=== PATIENT | female | born 1955 | race Caucasian/White ===

== ENCOUNTER 2021-08-10 16:24 | Outpatient (CLI) | payer MEDICARE, OTHER | END 2021-08-10 16:25 | disposition home or self-care (01) | LOC: COV 16:24 | PROVIDERS: ATTEND Family Medicine | DX: U07.1 COVID-19 (principal) ==

== ENCOUNTER 2021-08-16 14:39 | Emergency (ER) | payer MEDICARE, OTHER ==
[2021-08-16 15:02] VITALS: BP 158/71
--- NOTE | 2021-08-16 15:22 | ED Physician Documentation ---
History of Present Illness - Stated complaint Stated Complaint: C+ - Chief complaint Chief Complaint: Resp - History obtained from History obtained from: Patient, Family - History of Present Illness Timing: How many days ago (10) Pain level max: 0 Pain level now: 0 - Additonal information Additional information: Patient is a 65-year-old female who states she has been sick with Covid for 10 to 11 days. Tested positive about a week ago. She states that she has been feeling tired and fatigued and still has a cough. She states she thought she would be better in 5 to 6 days. She did not receive her Covid vaccination. She is not having fevers. No difficulty breathing. Nothing makes it better or worse. She is concerned about potential bacterial pneumonia complicating the Covid. Review of Systems Ten Systems: 10 systems reviewed and negative Constitutional: denies: Fever, Chills Respiratory: reports: Cough (clear sputum) GI: denies: Abdominal Pain, Nausea, Vomiting, Diarrhea Skin: denies: Rash Musculoskeletal: denies: Neck pain, Back pain Neurologic: denies: Headache PD PAST MEDICAL HISTORY - Past Medical History Past Medical History: Yes Cardiovascular: High cholesterol Endocrine/Autoimmune: Type 2 diabetes - Present Medications Home Medications: Ambulatory Orders Medication Instructions Recorded Confirmed No Known Home Medications 08/16/21 08/16/21 - Allergies Allergies/Adverse Reactions: Allergies Allergy/AdvReac Type Severity Reaction Status Date / Time iodine topical AdvReac Unknown Uncoded 08/16/21 14:58 - Social History Smoking Status: Former smoker PD ED PE NORMAL - Vitals Vital signs reviewed: Yes - General General: Alert and oriented X 3, No acute distress, Well developed/nourished - HEENT HEENT: PERRL, Moist mucous membranes - Neck Neck: Supple, no meningeal sign - Cardiac Cardiac: RRR, Strong equal pulses - Respiratory Respiratory: No respiratory distress, Clear bilaterally - Abdomen Abdomen: Soft, Non tender, Non distended - Derm Derm: Warm and dry - Neuro Neuro: Alert and oriented X 3 - Psych Psych: Normal mood, Normal affect Results - Vitals Vitals: Vital Signs - 24 hr 08/16/21 14:59 Temperature 37.7 C Heart Rate 90 Respiratory 18 Rate Blood Pressure 158/71 H O2 Saturation 94 Oxygen O2 Source Room air - Rads (name of study) cxr Radiology: Final report received, EMP read contemporaneously, See rad report (1.Faint bilateral airspace opacities, concerning for an atypical infectious process. ) PD MEDICAL DECISION MAKING - ED course Complexity details: reviewed results, re-evaluated patient, considered differential, d/w patient ED course: 65-year-old female with Covid. No respiratory distress. No hypoxia. She is 10-11 days into her illness. We discussed risks and benefits of monoclonal antibody therapy and its emergency use authorization. Patient declines monoclonal antibody therapy at this time. She states she would like to go home and rest. She will return if she worsens. Patient counseled regarding signs and symptoms for which I believe and urgent re-evaluation would be necessary. Patient with good understanding of and agreement to plan and is comfortable going home at this time This document was made in part using voice recognition software. While efforts are made to proofread this document, sound alike and grammatical errors may occur. Departure - Departure Disposition: 01 Home, Self Care Clinical Impression: COVID-19 Condition: Good Instructions: COVID-19 [facility] Follow-Up: your,doctor as needed [Other] Comments: You do have covid and your xray is consistent with covid. there is no evidence of bacterial pneumonia on your xray. Return if you worsen. We did discuss monoclonal antibodies and you have declined these today. If any of your friends and/or family need to be tested, they can call the hospital at [phone] for an appointment to have their Covid test.
--- NOTE | 2021-08-16 15:29 | XRAY Report ---
PROCEDURE: Chest 1 View X-Ray INDICATIONS: Covid+ TECHNIQUE: One view of the chest was acquired. COMPARISON: None. FINDINGS: SUPPORT DEVICES: None. LUNG/PLEURA: Faint bilateral airspace opacities. No pleural effusion or pneumothorax. MEDIASTINUM: The cardiomediastinal silhouette is within normal limits. BONES/SOFT TISSUES: No acute abnormality. IMPRESSION: 1.Faint bilateral airspace opacities, concerning for an atypical infectious process. Reviewed by: Henry Mccullough MD on 08/16/2021 3:28 PM PDT Approved by: Henry Mccullough MD on 08/16/2021 3:28 PM PDT Station ID: [id number]
== END 2021-08-16 16:01 | disposition home or self-care (01) ==
LOC: ED 14:39
DX: U07.1 COVID-19 (principal); E11.9 Type 2 diabetes mellitus without complications
CPT/HCPCS: 99283; 99284

== ENCOUNTER 2025-09-17 04:46 | Inpatient (IN) ==
[2025-09-17 05:15] LABS: HCT - HEMATOCRIT 44.3 % (37.0-47.0); HGB - HEMOGLOBIN 14.1 g/dL (12.0-16.0); MEAN PLATELET VOLUME 12.7 fL (7.9-10.8); PLT - PLATELET COUNT 204 10^3/uL (130-450); RED CELL DISTRIBUTION WIDTH 14.1 % (12.0-15.0)
[2025-09-17 05:17] LABS: ABNORMAL LYMPHS % (MANUAL) 0 %; BASOPHILS # (MANUAL) 0.0 10^3/uL (0-0.1); EOSINOPHILS # (MANUAL) 0.0 10^3/uL (0-0.7)
[2025-09-17] MEDS: SODIUM CHLORIDE 0.9% 500 ML IV ONE (05:32)
[2025-09-17] MEDS: FAMOTIDINE 20 MG TABLET PO STA (05:32)
[2025-09-17] MEDS: ONDANSETRON 4 MG/2 ML VIAL IVP STA (05:32)
[2025-09-17 05:44] LABS: ALT ALANINE AMINOTRANSFERASE 11 IU/L (10-60); AST ASPARTATE AMINOTRANSFERASE 11 IU/L (10-42); BUN - BLOOD UREA NITROGEN 39 mg/dL (6-20); CARBON DIOXIDE - CO2 23 mmol/L (21-32); CREATININE 2.1 mg/dL (0.6-1.3); GFR - MDRD 23 (>89)
[2025-09-17 05:46] LABS: BAND NEUTROPHILS % (MANUAL) 9 %; LYMPHOCYTES # (MANUAL) 1.8 10^3/uL (1.5-3.5); LYMPHOCYTES % (MANUAL) 8 %; MONOCYTES # (MANUAL) 0.2 10^3/uL (0.0-1.0); NEUTROPHILS # (MANUAL) 20.1 10^3/uL (1.5-6.6)
[2025-09-17 05:51] LABS: PLATELET ESTIMATE, MANUAL NORMAL (130-450,000) (NORMAL); PLATELET MORPHOLOGY 1+ LARGE PLATELETS (NORMAL); RBC MORPHOLOGY (MULTIPLE) NORMAL APPEARANCE (NORMAL)
--- NOTE | 2025-09-17 06:01 | ED Physician Documentation ---
History of Present Illness Stated complaint Stated Complaint: ABD PX Chief complaint Chief Complaint: Abd Pain History obtained from History obtained from: Patient Additonal information Additional information: 69yF with pmh dm p/w nbnb n/v X 2 days with malaise and generalized discomfort. denies abdominal pain, diarrhea, back pain or urinary sx. Meds/Allgy Home Medications Ambulatory Orders Medication Instructions Recorded Confirmed No Known Home Medications 08/16/21 100 05/01 Allergies Allergies Allergy/AdvReac Type Severity Reaction Status Date / Time Penicillins Allergy Mild Rash Verified 09/17/25 04:59 iodine topical AdvReac Unknown Uncoded 08/16/21 14:58 PFS Medical History Medical History (Updated 09/17/25 @ 05:58 by Bell Drake RN) Diabetes Surgical History Surgical History (Updated 09/17/25 @ 05:58 by Bell Drake RN) No pertinent past surgical history Social History Social History Do you feel safe in your home environment?: Yes History of physical, verbal, emotional, or financial abuse?: No POLST Patient has POLST: No Exam Exam Vital Signs: Vital Signs x48h Temp Pulse Resp BP Pulse Ox 09/17/25 04:55 35.9 C L 111 H 14 167/63 H 94 Constitutional deconditioned appearing HENMT normocephalic, head/scalp atraumatic and oropharynx normal Eyes PERRL and EOMs intact bilaterally Neck/C-Spine visual inspection normal Chest inspection of chest normal Respiratory breath sounds equal bilaterally, normal respiratory effort and clear to auscultation bilaterally Cardiovascular normal heart rate noted and regular rhythm noted Gastrointestinal abdomen normal to inspection, abdomen soft to palpation and nontender to palpation Genitourinary no CVA tenderness Back/Pelvis spine normal to inspection Extremities normal to inspection Results Vitals Vitals: Vital Signs - 24 hr 09/17/25 04:55 Temperature 35.9 C L Temperature Source Temporal Artery Scan Pulse Rate 111 H Respiratory Rate 14 Blood Pressure 167/63 H O2 Saturation 94 O2 Source Room air Pain Intensity 0 Oxygen O2 Source Room air Labs Labs: Laboratory Tests 09/17/25 09/17/25 05:10 05:10 WBC 22.1 H RBC 4.98 Hgb 14.1 Hct 44.3 MCV 89.0 MCH 28.3 MCHC 31.8 L RDW 14.1 Plt Count 204 MPV 12.7 H Neut # (Auto) Not Reportable Lymph # (Auto) Not Reportable [place] # (Auto) Not Reportable Eos # (Auto) Not Reportable Baso # (Auto) Not Reportable Absolute Nucleated RBC Not Reportable Total Counted 100 Band Neuts % (Manual) 9 Abnorm Lymph % (Manual) 0 Nucleated RBC % Not Reportable Neutrophils # (Manual) 20.1 H Lymphocytes # (Manual) 1.8 Monocytes # (Manual) 0.2 Eosinophils # (Manual) 0.0 Basophils # (Manual) 0.0 Differential Comment MANUAL DIFFERENTIAL WBC Morphology 1+ DOHLE BODIES 1+ VACUOLATION Platelet Estimate NORMAL (130-450,000) Platelet Morphology 1+ LARGE PLATELETS RBC Morph Micro Appear NORMAL APPEARANCE Sodium 128 L Potassium 4.3 Chloride 88 L Carbon Dioxide 23 Anion Gap 17.0 H BUN 39 H Creatinine 2.1 H Estimated GFR (MDRD) 23 L Glucose 567 H* Calcium 9.4 Total Bilirubin 0.5 AST 11 ALT 11 Alkaline Phosphatase 131 H Total Protein 7.1 Albumin 3.5 Globulin 3.6 Albumin/Globulin Ratio 1.0 Lipase < 10 L PD Medical Decision Making ED course ED course: 69yF p/w n/v, leukocytosis with wbc 22, hyperglycemia to 567. insulin, potassium ordered as well as ivf. plan to admit. CT a/p ordered. it is too late for telehealth to admit the patient therefore plan to endorse to incoming daytime ed md at 7am shift change to admit to daytime hospitalist. Discharge Plan Discharge Prescriptions: No Action No Known Home Medications Print Language: Indonesian Stand Alone Forms: PCP List
[2025-09-17] MEDS: INSULIN REGULAR, HUMAN 300 UNIT/3 ML PEN IVP STA (06:14)
[2025-09-17] MEDS: POTASSIUM CHLOR 10 MEQ/100 ML 10 MEQ/100 ML BAG IV STA (06:14)
[2025-09-17] MEDS: SODIUM CHLORIDE 0.9% 1,500 ML IV ONE (06:15)
[2025-09-17 06:27] LABS: VBG BASE EXCESS -4.5 mmol/L (-2 - +2); VBG PCO2 42.9 mmHg (41-51); VBG PH 7.313 (7.31-7.41); VBG PO2 36.8 mmHg (25-47); VBG TOTAL CO2 23.3 mmol/L (24-29)
--- NOTE | 2025-09-17 09:10 | CT Report ---
PROCEDURE: CT Abdomen/Pelvis WO INDICATIONS: n/v/malaise leukocytosis X 2 days; kidney stones TECHNIQUE: A CT scan of the abdomen and pelvis was performed without the use of intravenous contrast. Images were recorded and evaluated at appropriate window settings. Reformats: coronal and sagittal. For radiation dose reduction, the following was used: automated exposure control, adjustment of mA and/or kV according to patient size. COMPARISON: None. FINDINGS: Image quality: Diagnostic. Lower chest: Ill-defined nodular density, right middle lobe measuring approximately 0.9 x 1.7 cm. Reference axial image 11 of series 2. Heart size is within normal limits. Liver: No contour-deforming mass. Gallbladder: Layering gallstones or gravel. No wall thickening. Biliary tree: No intrahepatic or extrahepatic dilation, accounting for age. Spleen: No splenomegaly. Pancreas: No pancreatic ductal dilation. Adrenals: There is a 5 cm lesion of the left adrenal which is almost completely fat, consistent with incidental myelolipoma. Reference axial image 48 of series 2. Kidneys and ureters: No hydronephrosis. No contour-deforming mass. Stomach, bowel and peritoneum: No gastric or small bowel dilation. No abnormal wall thickening. There is inflammatory change in the right abdomen mesentery etiology is uncertain. Suspect mild segmental colitis involving the cecum and proximal ascending colon. Normal appendix. Lymph nodes: No central or retroperitoneal adenopathy. Shotty retroperitoneal adenopathy is likely reactive.. Vessels: No infrarenal aortic aneurysm. Reproductive organs: Unremarkable. Bladder: No abnormal bladder wall thickening. No calcified bladder stones. Pelvic lymph nodes: No adenopathy by size criteria. Bones: No aggressive osseous abnormality. Other: No significant ventral or inguinal hernia. IMPRESSION: 1. No renal stone, ureteral stone, or hydronephrosis. 2. Inflammatory change most noted in the right abdomen. Suspect segmental proximal colitis. A normal appendix is identified. 3. Layering gallstones versus gravel. 4. Ill-defined 0.9 x 1.7 cm nodular density in the right middle lobe, potentially partially related to atelectasis. Consider follow-up CT chest in 1-2 months. Findings are concordant with preliminary interpretation provided by [facility]. Reviewed by: Lamont De Jesus MD on 09/17/2025 9:07 AM [facility] Approved by: Lamont De Jesus MD on 09/17/2025 9:07 AM PST Station ID: [id number]
--- NOTE | 2025-09-17 09:56 | ED Physician Documentation ---
ED Addendum Addendum Addendum: 69-year-old Anne Lainez is left in my care at shift change pending admission to the hospital for diabetic ketoacidosis. She has type 2 diabetes and has been noncompliant with her medications. She is severely volume depleted, she has been given 2 L of fluid she has been given 10 units of iinsulin IV. She has ketones and a pH of 7.3. The hospitalist is contacted and the patient is placed onto an insulin drip and transferred to the intensive care unit. Admission to the hospital is sought for improvement in compliance, diabetic education and resolution of ketoacidosis. Discharge Plan Discharge Patient Disposition: 64 [facility] DC/Xfer Condition: Stable Clinical Impression: DKA (diabetic ketoacidosis) Qualifiers: Diabetes mellitus type: type 2 Diabetes mellitus complication detail: without coma Qualified Code(s): E11.10 - Type 2 diabetes mellitus with ketoacidosis without coma Interventions: ED Admission Assessment Last Done: 09/17/25 10:44 Vitals documented within 30 minutes of discharge?: Yes
[2025-09-17 10:33] LABS: GLUCOSE, URINE (UA) >=1000 mg/dL (NEGATIVE); KETONES,URINE (UA) 15 mg/dL (NEGATIVE); OCCULT BLOOD,URINE MODERATE (NEGATIVE)
[2025-09-17] MEDS: INSULIN REGULAR IN 0.9 % NS 100 UNIT/100 ML BAG IV STA (10:41)
[2025-09-17] MEDS: LACTATED RINGERS 1,000 ML IV ONE (10:41)
[2025-09-17 10:42] LABS: CARBON DIOXIDE - CO2 20.0 mmol/L (21-32)
[2025-09-17] MEDS: POTASSIUM CHLORIDE INJ 20 MEQ in LACTATED RINGERS 1,000 ML IV SCH (10:42)
[2025-09-17 10:47] LABS: BUN - BLOOD UREA NITROGEN 39.0 mg/dL (6-20); CREATININE 1.9 mg/dL (0.6-1.3); GFR - MDRD 26.0 (>89)
[2025-09-17 10:49] LABS: SQUAMOUS EPITHELIAL CELL,UR MOD Squamous (<= Few); WBC CLUMPS,URINE PRESENT
[2025-09-17] MEDS ORDERED: ONDANSETRON ODT 4 MG TABLET TL PRN (10:52)
--- NOTE | 2025-09-17 10:58 | HISTORY & PHYSICAL EXAMINATION ---
Chief Complaint Chief Complaint Chief Complaint: Nausea and vomiting History of Present Illness Admitted From Admitted From:: Home History Obtained From Records Reviewed: EMR History obtained from: Patient and Patient's son Exam Limitations: None History of Present Illness HPI Comment/Other: Anne Lainez is a 69 year old female with a history of type 2 diabetes mellitis who presented to the ER early 09/17 with nausea/vomiting for two days and malaise and generalized discomfort. She is being admitted for DKA. Patient's son, Mj, at bedside. Ms. Lainez started experiencing nausea and vomiting two days ago. She had not been eating much before then. She lives with her son and [id number]. Her son showed us a picture of her vomit from a day ago which appeared like yellowish bile and coffee ground. Her son tried to get her to eat something, but she just continued to vomit it back up. She has been diagnosed with type 2 diabetes. Her son says that she previously controlled it with activity and diet, but that it has been more and more difficult to manage. A number of stressful events have occurred recently including the deaths of close family members, which has made her less motivated. She does not take any medicines and has not seen a doctor in 12 years. ROS: Denies fevers, chills Denies SOB, CP and chest tightness Reports fatigue and weakness Reports decrease in appetite d/t nausea Reports history of cataracts and floaters bilaterally. Meds/Allgy Home Medications Ambulatory Orders Medication Instructions Recorded Confirmed No Known Home Medications 08/16/2106/04 Allergies Allergies Allergy/AdvReac Type Severity Reaction Status Date / Time Penicillins Allergy Mild Rash Verified 09/17/25 07:25 iodine topical AdvReac Unknown Uncoded 09/17/25 07:25 [facility] Active Problems All Active Problems (Updated 09/17/25 @ 16:37 by Naveed Christian MD) Acute kidney failure (Acute) High anion gap metabolic acidosis (Acute) Gram-negative bacteremia (Acute) Gram negative sepsis (Acute) Atrial fibrillation with RVR (Chronic) DKA (diabetic ketoacidosis) (Chronic) Medical History Medical History (Updated 09/17/25 @ 16:37 by Naveed Christian MD) Diabetes Surgical History Surgical History (Updated 09/17/25 @ 05:58 by Bell Darke RN) No pertinent past surgical history Social History Social History (Updated 09/17/25 @ 15:05 by Ronnie Evans) Smoking Status: Former smoker Second hand tobacco smoke exposure: No Do you dip or chew tobacco?: No Do you vape?: No Do you feel safe in your home environment?: Yes History of physical, verbal, emotional, or financial abuse?: No POLST Patient has POLST: No Review of Systems Status of ROS: 10 or more systems reviewed and unremarkable except as noted in history and below Constitutional Reports: Fatigue, Malaise, Weakness, Changes in appetite or eating habits and Poor appetite; Denies: Fever or Chills Eyes Reports: Floaters, Vision loss (gradual decrease in vision d/t cataracts) and Decreased night vision Cardiovascular Reports: Irregular heart rate and palpitations; Denies: chest pain, edema or shortness of breath with exertion Respiratory Denies: Shortness of breath, Cough or Sputum production Gastrointestinal Reports: Abdominal pain (resolved), Nausea, Vomiting, Poor appetite and Bile emesis Genitourinary Denies: Painful urination, Urinary frequency, Urinary urgency, Nocturia, Urinary incontinence or Blood in urine Musculoskeletal Denies: Back pain or Extremity pain Integumentary/Breast Denies: Rash, Itching, Dryness or Redness Neurological Denies: Headache, General weakness or Focal weakness Psychiatric Denies: Depression, Anxiety, Mood swings or Panic attacks Endocrine Reports: Excessive urination and Fatigue Prior Level of Functionality: Independent of ADLs, but lives with son. States that she should be maybe using a walker or cane. Exam Exam Vital Signs: Vital Signs x48h Temp Pulse Pulse Resp BP BP Pulse Ox 09/17/25 16:00 37.4 C 133 H 20 117/90 92 09/17/25 15:00 122 H 25 H 110/51 L 95 09/17/25 14:17 132 H 21 98/55 L 93 09/17/25 14:07 133 H 21 103/65 95 09/17/25 14:00 126 H 23 103/65 95 09/17/25 13:00 115 H 21 100/64 93 09/17/25 12:00 115 H 22 115/54 L 92 09/17/25 11:37 135 H 149/104 H 09/17/25 11:30 107 H 24 92 09/17/25 11:00 133 H 26 H 149/104 H 90 L 09/17/25 10:47 37.3 C 106 H 13 114/67 94 Constitutional abnormal general appearance other (sleepy), no apparent distress and alert HENMT normocephalic and head/scalp atraumatic Eyes PERRL, EOMs intact bilaterally and conjunctivae normal Respiratory breath sounds equal bilaterally and normal respiratory effort Cardiovascular heart rate abnormal (tachycardic), rhythm abnormal (irregular), no gallop, no rub, no murmur, no JVD and peripheral pulses 2+ throughout Gastrointestinal abdomen normal to inspection, abdomen soft to palpation, nontender to palpation and nondistended Genitourinary no CVA tenderness and bladder normal to palpation Back/Pelvis spine normal to inspection and no thoracic spine tenderness Extremities normal to inspection and no tenderness Neurology no movement abnormality noted and no focal motor deficit noted Psychiatry mental status grossly normal, oriented x3, thought process normal and cooperative Skin skin color normal Conclusion/Plan Problem List (1) DKA (diabetic ketoacidosis): Qualifiers: Diabetes mellitus complication detail: without coma Diabetes mellitus type: type 2 Qualified Code(s): E11.10 - Type 2 diabetes mellitus with ketoacidosis without coma (2) High anion gap metabolic acidosis: Plan: Anne Lainez is a 69 year old female with a history of type 2 diabetes mellitis who presented to the ER early 09/17 with nausea/vomiting for two days and malaise and generalized discomfort. She does not take any medications for DM2. Her son states it was previously controlled with exercise and diet, but is now poorly controlled. Labs at admit: Serum glucose 567(H). Elevated urine glucose. Serum pH 7.31. Anion gap 17.0(H). Elevated serum and urine ketones. She is being admitted for DKA. She has been started on a continuous insulin drip with IV fluids supplemental potassium. Her POC glucose is being checked hourly. Her BMP are being checked every two hours. The following plan is for the above diagnoses. - Continue checking POC glucose hourly - Continue checking BMP every 2 hours for bicarb and anion gap - Continue continuous insulin IV drip until bicarb >18 and anion gap is closed on two subsequent BMPs. Then will change to Lantus, sliding scale, diabetic diet. - Continue fluid resuscitation - Continue potassium supplemental PRN to prevent hypokalemia - Continue NPO diet - Clinical Pharmacy Manager consult - Insulin teaching when receiving insulin (3) Gram negative sepsis: Plan: Blood cultures drawn at admit resulted with gram-negative bacilli. - Source is likely urine. UA is contaminated. Patient does not endorse many urinary symptoms except for polyuria and polydipsia. - SIRS criteria positive for tachypnea, leukocytosis, and tachycardia. - Start daily ceftriaxone 2 gm IV daily (4) Atrial fibrillation with RVR: Plan: No known previous history of Afib. Pt developed Afib with RVR at admission. - Started metoprolol tartrate 25 mg PO BID for rate control - Started on apixaban 5 mg for clot prevention - Continue monitoring on tele - ECHO ordered (5) Acute kidney failure: Plan: Likely multifactorial due to pre-renal causes and intrisinc injury with hemodynamic ATN due to sepsis - Continue IVF Lab Results Lab results reviewed: Yes 09/17/25 05:10 09/17/25 15:52
[2025-09-17 11:10] LABS: ESTIMATED AVERAGE GLUCOSE 367 mg/dL (70-100); HEMOGLOBIN A1c% 14.4 % (4.27-6.07)
--- NOTE | 2025-09-17 11:20 | PHARMACY PROGRESS NOTE ---
Best Possible Medication History Admit Date and Time: 09/17/25 235219 Home Medications Medication Instructions Recorded Confirmed Type No Known Home Medications 08/16/2106/04 History Processed by: Pharmacy Medications reviewed in ED?: No Medication History completed: Yes Patient Interview: Completed Secondary Source(s): Other family member [facility] Statement: As the person ultimately responsible for medication therapy, providers are able to order a medication from an existing home medication list in [facility] via the "Reconcile Routine" prior to Confirmation of that medication by support services tech. Such practice is discouraged except when the physician, in their clinical judgment, deems that a medical need exists for a medication without regard to previous use.
[2025-09-17] MEDS ORDERED: METOPROLOL 5 MG/5 ML VIAL IVP ONE (11:29)
[2025-09-17] MEDS: METOPROLOL 5 MG/5 ML VIAL IVP ONE ×2 (11:37→18:38)
[2025-09-17] MEDS: POTASSIUM CHLOR 10 MEQ/100 ML 10 MEQ/100 ML BAG IV SCH ×2 (12:06→14:40)
[2025-09-17 13:35] LABS: PHOSPHORUS 1.9 mg/dL (2.5-5.0)
[2025-09-17 13:36] LABS: BUN - BLOOD UREA NITROGEN 41.0 mg/dL (6-20); CARBON DIOXIDE - CO2 22.0 mmol/L (21-32); CREATININE 1.8 mg/dL (0.6-1.3); GFR - MDRD 28.0 (>89)
[2025-09-17] MEDS: MAGNESIUM SULFATE 2 GRAM 2 GM/50 ML BAG IV ONE (13:59)
[2025-09-17] MEDS ORDERED: POTASSIUM CHLOR 10 MEQ/100 ML 10 MEQ/100 ML BAG IV SCH ×2 (14:00)
[2025-09-17] MEDS: POTASSIUM CHLORIDE INJ 20 MEQ in DEXTROSE 5%-LACTATED RINGERS 1,000 ML IV SCH (14:41)
[2025-09-17] MEDS ORDERED: POTASSIUM PHOSPHATE 15 MMOL in SODIUM CHLORIDE 0.9% 250 ML IV ONE (14:50)
[2025-09-17] MEDS ORDERED: INSULIN REGULAR IN 0.9 % NS 100 UNIT/100 ML BAG IV ONE (14:52)
[2025-09-17 16:12] LABS: BUN - BLOOD UREA NITROGEN 40.0 mg/dL (6-20); CARBON DIOXIDE - CO2 25.0 mmol/L (21-32); CREATININE 1.9 mg/dL (0.6-1.3); GFR - MDRD 26.0 (>89)
[2025-09-17] MEDS: INSULIN GLARGINE-YFGN 300 UNIT/3 ML PEN SUBQ ONE (16:48)
[2025-09-17] MEDS: SODIUM CHLORIDE FLUSH 0.9% 10 ML SYRINGE IVP SCH (16:54)
[2025-09-17 17:48] LABS: BUN - BLOOD UREA NITROGEN 42.0 mg/dL (6-20); CARBON DIOXIDE - CO2 25.0 mmol/L (21-32); CREATININE 1.8 mg/dL (0.6-1.3); GFR - MDRD 28.0 (>89)
[2025-09-17] MEDS: ONDANSETRON 4 MG/2 ML VIAL IVP PRN (17:49)
[2025-09-17] MEDS: LACTATED RINGERS 1,000 ML IV SCH (17:50)
[2025-09-17] MEDS: APIXABAN 5 MG TABLET PO SCH (21:15)
[2025-09-17] MEDS: METOPROLOL TARTRATE 25 MG TABLET PO SCH (21:15)
[2025-09-17] MEDS: ACETAMINOPHEN 325 MG TABLET PO PRN (21:23)
[2025-09-17] MEDS: INSULIN LISPRO 300 UNIT/3 ML PEN SUBQ SCH (21:36)
[2025-09-18 05:00] LABS: HCT - HEMATOCRIT 37.8 % (37.0-47.0); HGB - HEMOGLOBIN 12.3 g/dL (12.0-16.0); MEAN PLATELET VOLUME 12.5 fL (7.9-10.8); PLT - PLATELET COUNT 168.0 10^3/uL (130-450); RED CELL DISTRIBUTION WIDTH 14.2 % (12.0-15.0)
[2025-09-18 05:17] LABS: BUN - BLOOD UREA NITROGEN 48.0 mg/dL (6-20); CARBON DIOXIDE - CO2 21.0 mmol/L (21-32); CREATININE 2.3 mg/dL (0.6-1.3); GFR - MDRD 21.0 (>89)
[2025-09-18] MEDS: PANTOPRAZOLE 40 MG VIAL IVP SCH (06:28)
[2025-09-18] MEDS: INSULIN GLARGINE-YFGN 300 UNIT/3 ML PEN SUBQ ONE (07:56)
[2025-09-18] MEDS: INSULIN LISPRO 300 UNIT/3 ML PEN SUBQ SCH ×2 (07:57→17:54)
[2025-09-18] MEDS: APIXABAN 2.5 MG TABLET PO SCH (08:05)
[2025-09-18] MEDS: SODIUM CHLORIDE 0.9% 1,000 ML IV SCH (09:26)
--- NOTE | 2025-09-18 11:38 | PROVIDER PROGRESS NOTE ---
Subjective Prog Note Date Prog Note Date: 09/18/25 Prog Note Time: 09:15 Subjective Pt reports feeling: Improved Subjective: Anne Lainez is a 69 year old female with a history of type 2 diabetes mellitus who presented to the ER early 09/17 with nausea/vomiting for two days and malaise and generalized discomfort. She is feeling much better today. She doesn't remember any of the events of yesterday, but feels much more alert today. She felt a bit nauseous earlier today before eating, but felt much better after some food and meds. She ate about half of her breakfast. She had a bit of a sinus headache overnight, but says that it has resolved. She says that her decreased vision is at baseline. 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 Floaters in her left eye. And cataracts in both eyes. She says that she has decreased sensation on her feet and has a history of toe fungus on her left foot. Her son typically helps her cut her toenails. ROS: Denies fever, nausea, vomiting Reports some shivers overnight, but denies feeling of chills Denies WEIR Denies SOB, CP, chest tightness Reports minor epigastric pain that resolved with eating Current Medications Current Medications Current Medications: Current Medications Generic Name Dose Route Start Last Admin Trade Name Freq PRN Reason Stop Dose Admin Acetaminophen 650 mg 09/17/25 10:52 09/17/25 21:23 Acetaminophen 325 Mg Tablet PO 650 mg Q4HR PRN Administration Pain 1 to 4, or Fever Apixaban 2.5 mg 09/18/25 09:00 09/18/25 08:05 Apixaban 2.5 Mg Tablet PO 2.5 mg BID FABIO Administration Ceftriaxone Sodium 2 gm 09/17/25 17:00 09/18/25 08:04 Ceftriaxone 2 Gm Vial IVP 2 gm DAILY FABIO Administration Sodium Chloride 1,000 mls @ 75 mls/hr 09/18/25 10:00 09/18/25 09:26 Normal Saline 0.9% IV 75 mls/hr .[id number] FABIO Administration Insulin Human Lispro 1 - 9 unit 09/18/25 08:00 09/18/25 07:57 Insulin Lispro 300 Unit/3 Ml Pen SUBQ 7 unit 0800,1200,1700,2100 FABIO Administration Protocol Metoprolol Tartrate 25 mg 09/17/25 21:00 09/18/25 07:59 Metoprolol Tartrate 25 Mg Tablet PO 25 mg BID FABIO Administration Ondansetron HCl 4 mg 09/17/25 10:52 Ondansetron Odt 4 Mg Tablet TL Q6HR PRN Nausea / Vomiting Ondansetron HCl 4 mg 09/17/25 10:52 09/18/25 06:35 Ondansetron 4 Mg/2 Ml Vial IVP 4 mg Q6HR PRN Administration Nausea / Vomiting Pantoprazole Sodium 40 mg 09/19/25 07:00 Pantoprazole 40 Mg Tablet PO QDAC FABIO Sodium Chloride 10 ml 09/17/25 17:00 09/18/25 08:04 Sodium Chloride Flush 0.9% 10 Ml Syringe IVP 10 ml 0100,0900,1700 FABIO Administration Sodium Chloride 10 ml 09/17/25 10:52 Sodium Chloride Flush 0.9% 10 Ml Syringe IVP PRN PRN NEEDED PER PROVIDER ORDERS Objective Vital Signs/Intake & Output Reviewed Vital Signs: Yes Vital Signs: Vital Signs x48h Temp Pulse Pulse Resp BP BP Pulse Ox 09/18/25 11:00 71 21 137/72 H 96 09/18/25 10:00 70 20 125/84 94 09/18/25 09:00 73 25 H 130/81 94 09/18/25 08:00 09/18/25 08:00 36.8 C 82 22 166/87 H 95 09/18/25 07:59 82 166/87 H 09/18/25 07:00 77 22 148/81 H 96 09/18/25 06:00 78 29 H 144/83 H 96 09/18/25 05:00 78 19 151/69 H 98 09/18/25 04:00 75 22 112/69 96 O2 Flow Rate 09/18/25 11:00 2 09/18/25 10:00 2 09/18/25 09:00 2 09/18/25 08:00 2 09/18/25 08:00 2 09/18/25 07:59 09/18/25 07:00 09/18/25 06:00 2 09/18/25 05:00 2 09/18/25 04:00 2 Intake & Output: Intake & Output 09/15/25 09/16/25 09/17/25 09/18/25 23:59 23:59 23:59 23:59 Intake Total 4961 / 4961 2501 / 2501 Output Total 50 / 50 50 / 50 Balance 4911 / 4911 2451 / 2451 Weight (kg) 86 kg 90.5 kg Objective General Appearance: positive No acute distress and Alert Eyes Bilateral: positive Normal inspection, PERRL and EOMI Neck: positive Nml inspection Respiratory: positive Chest non-tender, No respiratory distress, Breath sounds nml and Other (Mild bibasilar crackles); negative Wheezes, Rales or Rhonchi Cardiovascular: positive Regular rate & rhythm (Rate currently controlled), No murmur and No gallop; negative Friction rub Peripheral Pulses: 2+: Radial (R), 2+: Radial (L), 2+: Dorsalis pedis (R), 2+: Dorsalis pedis (L), 2+: Posterior tibialis (R) and 2+: Posterior tibialis (L) Abdomen: positive Non-tender and No distention; negative Guarding, Rebound, Hepatomegaly or Mass Skin: positive Color nml, No rash and Warm Extremities: positive Non-tender, No pedal edema and Other (Yellowish toenails on left foot. Decreased sensation bilaterally in LE, worse on left foot. No apparent cellulitis, wounds, or infections.) Neurologic/Psychiatric: positive Oriented x3, Sensation nml (Diminished LE sensation bilaterally) and Mood/affect nml Lab Results 09/18/25 04:15 09/18/25 04:15 Other Labs: Lab Results x24hrs 09/18/25 09/18/25 09/17/25 Range/Units 07:38 04:15 20:28 WBC 15.8 H (4.8-10.8) x10^3/uL RBC 4.20 (4.20-5.40) 10^6/uL Hgb 12.3 (12.0-16.0) g/dL Hct 37.8 (37.0-47.0) % MCV 90.0 (81.0-99.0) fL MCH 29.3 (27.0-31.0) pg MCHC 32.5 (32.0-36.0) g/dL RDW 14.2 (12.0-15.0) % Plt Count 168 (130-450) 10^3/uL MPV 12.5 H (7.9-10.8) fL Sodium 127 L (135-145) mmol/L Potassium 4.7 H (3.5-4.5) mmol/L Chloride 97 L (101-111) mmol/L Carbon Dioxide 21 (21-32) mmol/L Anion Gap 9.0 (6-13) BUN 48 H (6-20) mg/dL Creatinine 2.3 H (0.6-1.3) mg/dL Estimated GFR (MDRD) 21 L (>89) Glucose 288 H (74-104) mg/dL POC Whole Bld Glucose 276 216 (70-100) mg/dL Calcium 8.4 L (8.5-10.3) mg/dL Phosphorus (2.5-5.0) mg/dL Magnesium 2.1 (1.7-2.3) mg/dL Nasal Screen MRSA (PCR) (NEGATIVE) 09/17/25 09/17/25 09/17/25 Range/Units 17:56 17:14 16:51 WBC (4.8-10.8) x10^3/uL RBC (4.20-5.40) 10^6/uL Hgb (12.0-16.0) g/dL Hct (37.0-47.0) % MCV (81.0-99.0) fL MCH (27.0-31.0) pg MCHC (32.0-36.0) g/dL RDW (12.0-15.0) % Plt Count (130-450) 10^3/uL MPV (7.9-10.8) fL Sodium 133 L (135-145) mmol/L Potassium 3.9 (3.5-4.5) mmol/L Chloride 99 L (101-111) mmol/L Carbon Dioxide 25 (21-32) mmol/L Anion Gap 9.0 (6-13) BUN 42 H (6-20) mg/dL Creatinine 1.8 H (0.6-1.3) mg/dL Estimated GFR (MDRD) 28 L (>89) Glucose 86 (74-104) mg/dL POC Whole Bld Glucose 124 103 (70-100) mg/dL Calcium 8.5 (8.5-10.3) mg/dL Phosphorus (2.5-5.0) mg/dL Magnesium (1.7-2.3) mg/dL Nasal Screen MRSA (PCR) (NEGATIVE) 09/17/25 09/17/25 09/17/25 Range/Units 15:52 15:03 13:55 WBC (4.8-10.8) x10^3/uL RBC (4.20-5.40) 10^6/uL Hgb (12.0-16.0) g/dL Hct (37.0-47.0) % MCV (81.0-99.0) fL MCH (27.0-31.0) pg MCHC (32.0-36.0) g/dL RDW (12.0-15.0) % Plt Count (130-450) 10^3/uL MPV (7.9-10.8) fL Sodium 132 L (135-145) mmol/L Potassium 3.9 (3.5-4.5) mmol/L Chloride 99 L (101-111) mmol/L Carbon Dioxide 25 (21-32) mmol/L Anion Gap 8.0 (6-13) BUN 40 H (6-20) mg/dL Creatinine 1.9 H (0.6-1.3) mg/dL Estimated GFR (MDRD) 26 L (>89) Glucose 125 H (74-104) mg/dL POC Whole Bld Glucose 121 175 240 (70-100) mg/dL Calcium 8.7 (8.5-10.3) mg/dL Phosphorus (2.5-5.0) mg/dL Magnesium (1.7-2.3) mg/dL Nasal Screen MRSA (PCR) (NEGATIVE) 09/17/25 09/17/25 09/17/25 Range/Units 13:13 11:58 11:00 WBC (4.8-10.8) x10^3/uL RBC (4.20-5.40) 10^6/uL Hgb (12.0-16.0) g/dL Hct (37.0-47.0) % MCV (81.0-99.0) fL MCH (27.0-31.0) pg MCHC (32.0-36.0) g/dL RDW (12.0-15.0) % Plt Count (130-450) 10^3/uL MPV (7.9-10.8) fL Sodium 131 L (135-145) mmol/L Potassium 3.6 (3.5-4.5) mmol/L Chloride 97 L (101-111) mmol/L Carbon Dioxide 22 (21-32) mmol/L Anion Gap 12.0 (6-13) BUN 41 H (6-20) mg/dL Creatinine 1.8 H (0.6-1.3) mg/dL Estimated GFR (MDRD) 28 L (>89) Glucose 304 H (74-104) mg/dL POC Whole Bld Glucose 291 351 (70-100) mg/dL Calcium 8.2 L (8.5-10.3) mg/dL Phosphorus 1.9 L (2.5-5.0) mg/dL Magnesium 1.6 L (1.7-2.3) mg/dL Nasal Screen MRSA (PCR) NEGATIVE (NEGATIVE) Assessment/Plan Problem List (1) E coli bacteremia: Impression: Blood cultures drawn 09/17 resulted with E coli. Source is likely urine. UA is contaminated. Patient does not endorse many urinary symptoms except for polyuria and polydipsia. SIRS criteria positive for tachypnea, leukocytosis, and tachycardia. Leukocytosis is improved today. Afebrile for over 24 hours. Now in normal sinus rhythm. - Continue daily ceftriaxone 2 gm IV daily for a total of 4 days with transition to oral antibiotics pending clinical improvement to complete a 7-14 day course. (2) DKA (diabetic ketoacidosis): Qualifiers: Diabetes mellitus complication detail: without coma Diabetes mellitus type: type 2 Qualified Code(s): E11.10 - Type 2 diabetes mellitus with ketoacidosis without coma (3) High anion gap metabolic acidosis: Impression: Anne Lainez is a 69 year old female with a history of type 2 diabetes mellitus who presented to the ER early 09/17 with nausea/vomiting for two days and malaise and generalized discomfort. She does not take any medications for DM2. Her son states it was previously controlled with exercise and diet, but is now poorly controlled. Labs at admit: Serum glucose 567(H). Elevated urine glucose. Serum pH 7.31. Anion gap 17.0(H). Elevated serum and urine ketones. She was admitted for DKA. 09/17 AM started on a continuous insulin drip with IV fluids supplemental potassium and hourly POC glucose and BMP q 2 hours. 09/17 PM Bicarb and anion gap are within range. Bicarb 25. Anion gap 8.0. Pt started on long-acting insulin with sliding scale and diabetic diet. Continued to monitor glucose with meals. Pt switched to rapid-acting insulin. 09/18 She reports feeling much better. Bicarb and anion gap continue to be controlled. Continue to monitor pt. The following plan is for the above diagnoses. - Continue daily labs (CBC, CMP, and Mg) - Continue to monitor pt glucose with meals - Continue Lantus 20 units at night, 5 units Lispro with meals, moderate dose sliding scale. - Continue IV fluids NS 75 mL/hr - Continue diabetic diet - Medication Specialist consult - Insulin teaching when receiving insulin (4) Atrial fibrillation with RVR: Impression: No known previous history of Afib. Pt developed Afib with RVR at admission. Converted to sinus rhythm around 10 PM 09/17. Apixaban dose lowered to 2.5 mg. - Switch metoprolol tartrate 25 mg PO BID for rate control to metoprolol succinate 25 mg qDAY - Continue on apixaban 2.5 mg for clot prevention, renally dosed at this time due to MARINO - Continue monitoring on tele - ECHO ordered (5) Acute kidney failure: Impression: Likely multifactorial due to pre-renal causes and intrisinc injury with hemodynamic ATN due to sepsis. - Continue IV fluids - Repeat BMP today Qualifiers: Acute renal failure type: unspecified Qualified Code(s): N17.9 - Acute kidney failure, unspecified (6) Uncontrolled diabetes mellitus: Impression: - A1c 14.4% this admission. Patient with a noted history of non-compliance, has not seen a doctor in over 12 years. - Continue Lantus 20 units at night, 5 units Lispro with meals, moderate dose sliding scale. Qualifiers: Diabetes mellitus type: type 2 Glycemic state: with hyperglycemia Q ualified Code(s): E11.65 - Type 2 diabetes mellitus with hyperglycemia
[2025-09-18 15:46] LABS: BUN - BLOOD UREA NITROGEN 54.0 mg/dL (6-20); CARBON DIOXIDE - CO2 23.0 mmol/L (21-32); CREATININE 2.4 mg/dL (0.6-1.3); GFR - MDRD 20.0 (>89)
[2025-09-18] MEDS: INSULIN GLARGINE-YFGN 300 UNIT/3 ML PEN SUBQ SCH (21:06)
[2025-09-19] MEDS ORDERED: METOPROLOL 5 MG/5 ML VIAL IVP SCH (06:00)
[2025-09-19] MEDS: PANTOPRAZOLE 40 MG TABLET PO SCH (06:17)
[2025-09-19 08:08] LABS: HCT - HEMATOCRIT 38.1 % (37.0-47.0); HGB - HEMOGLOBIN 13.0 g/dL (12.0-16.0); MEAN PLATELET VOLUME 12.9 fL (7.9-10.8); PLT - PLATELET COUNT 179.0 10^3/uL (130-450); RED CELL DISTRIBUTION WIDTH 14.2 % (12.0-15.0)
[2025-09-19 08:15] LABS: BUN - BLOOD UREA NITROGEN 52.0 mg/dL (6-20); CARBON DIOXIDE - CO2 22.0 mmol/L (21-32); CREATININE 1.7 mg/dL (0.6-1.3); GFR - MDRD 30.0 (>89)
--- NOTE | 2025-09-19 09:03 | PROVIDER PROGRESS NOTE ---
Subjective Prog Note Date Prog Note Date: 09/19/25 Prog Note Time: 09:15 Subjective Pt reports feeling: No change Subjective: Anne Lainez is a 69 year old female with a history of type 2 diabetes mellitus who presented to the ER early 09/17 with nausea/vomiting for two days and malaise and generalized discomfort. She is feeling about the same today. She is sitting up in bed eating her breakfast. She says that she had an ok night but is feeling pretty tired. She felt a bit nauseous late yesterday evening, but it resolved overnight after some food and meds. ROS: Denies fever, chills nausea, vomiting Denies WEIR, vision changes Denies SOB, CP, palpitations, chest tightness Current Medications Current Medications Current Medications: Current Medications Generic Name Dose Route Start Last Admin Trade Name Freq PRN Reason Stop Dose Admin Acetaminophen 650 mg 09/17/25 10:52 09/17/25 21:23 Acetaminophen 325 Mg Tablet PO 650 mg Q4HR PRN Administration Pain 1 to 4, or Fever Apixaban 2.5 mg 09/18/25 09:00 09/18/25 21:06 Apixaban 2.5 Mg Tablet PO 2.5 mg BID FABIO Administration Ceftriaxone Sodium 2 gm 09/17/25 17:00 09/18/25 08:04 Ceftriaxone 2 Gm Vial IVP 2 gm DAILY FABIO Administration Insulin Glargine-yfgn 20 unit 09/18/25 21:00 09/18/25 21:06 Insulin Glargine-Yfgn 300 Unit/3 Ml Pen SUBQ 20 unit QPM FABIO Administration Insulin Human Lispro 1 - 9 unit 09/18/25 08:00 09/18/25 21:10 Insulin Lispro 300 Unit/3 Ml Pen SUBQ 5 unit 0800,1200,1700,2100 FABIO Administration Protocol Insulin Human Lispro 5 unit 09/18/25 17:00 09/18/25 17:54 Insulin Lispro 300 Unit/3 Ml Pen SUBQ 5 unit TIDWM FABIO Administration Metoprolol Succinate 50 mg 09/19/25 09:00 Metoprolol Succinate 50 Mg Tablet PO DAILY FABIO Metoprolol Tartrate 2.5 mg 09/19/25 06:00 Metoprolol 5 Mg/5 Ml Vial IVP 09/20/25 05:59 ONCE FABIO Ondansetron HCl 4 mg 09/17/25 10:52 Ondansetron Odt 4 Mg Tablet TL Q6HR PRN Nausea / Vomiting Ondansetron HCl 4 mg 09/17/25 10:52 09/18/25 13:12 Ondansetron 4 Mg/2 Ml Vial IVP 4 mg Q6HR PRN Administration Nausea / Vomiting Pantoprazole Sodium 40 mg 09/19/25 07:00 09/19/25 06:17 Pantoprazole 40 Mg Tablet PO 40 mg QDAC FABIO Administration Sodium Chloride 10 ml 09/17/25 17:00 09/19/25 03:26 Sodium Chloride Flush 0.9% 10 Ml Syringe IVP 10 ml 0100,0900,1700 FABIO Administration Sodium Chloride 10 ml 09/17/25 10:52 Sodium Chloride Flush 0.9% 10 Ml Syringe IVP PRN PRN NEEDED PER PROVIDER ORDERS Objective Vital Signs/Intake & Output Reviewed Vital Signs: Yes Vital Signs: Vital Signs x48h Temp Pulse Resp BP Pulse Ox 09/19/25 04:50 37.1 C 115 H 22 145/85 H 98 Intake & Output: Intake & Output 09/16/25 09/17/25 09/18/25 09/19/25 23:59 23:59 23:59 23:59 Intake Total 4961 / 4961 3646 / 3646 Output Total 50 / 50 550 / 550 800 / 800 Balance 4911 / 4911 3096 / 3096 -800 / -800 Weight (kg) 86 kg 90.5 kg 90.5 kg Objective General Appearance: positive No acute distress and Alert Eyes Bilateral: positive Normal inspection Neck: positive Nml inspection Respiratory: positive Chest non-tender, No respiratory distress, Breath sounds nml and Rales (Mild bibasilar crackles); negative Wheezes or Rhonchi Cardiovascular: positive No murmur, No gallop, Irregularly irregular and Tachycardia; negative Friction rub Peripheral Pulses: 2+: Radial (R), 2+: Radial (L), 2+: Dorsalis pedis (R), 2+: Dorsalis pedis (L), 2+: Posterior tibialis (R) and 2+: Posterior tibialis (L) Abdomen: positive Non-tender and No distention; negative Guarding, Rebound, Hepatomegaly or Mass Skin: positive Color nml, No rash and Warm Extremities: positive Non-tender, No pedal edema and Other (Yellowish toenails on left foot. Decreased sensation bilaterally in LE, worse on left foot. No apparent cellulitis, wounds, or infections.) Neurologic/Psychiatric: positive Oriented x3, Sensation nml (Diminished LE sensation bilaterally) and Mood/affect nml Lab Results 09/19/25 07:40 09/19/25 07:40 Other Labs: Lab Results x24hrs 09/19/25 09/19/25 09/18/25 Range/Units 07:40 07:27 20:46 WBC 15.6 H (4.8-10.8) x10^3/uL RBC 4.35 (4.20-5.40) 10^6/uL Hgb 13.0 (12.0-16.0) g/dL Hct 38.1 (37.0-47.0) % MCV 87.6 (81.0-99.0) fL MCH 29.9 (27.0-31.0) pg MCHC 34.1 (32.0-36.0) g/dL RDW 14.2 (12.0-15.0) % Plt Count 179 (130-450) 10^3/uL MPV 12.9 H (7.9-10.8) fL Sodium 129 L (135-145) mmol/L Potassium 4.0 (3.5-4.5) mmol/L Chloride 99 L (101-111) mmol/L Carbon Dioxide 22 (21-32) mmol/L Anion Gap 8.0 (6-13) BUN 52 H (6-20) mg/dL Creatinine 1.7 H (0.6-1.3) mg/dL Estimated GFR (MDRD) 30 L (>89) Glucose 198 H (74-104) mg/dL POC Whole Bld Glucose 205 259 (70-100) mg/dL Calcium 8.3 L (8.5-10.3) mg/dL 09/18/25 09/18/25 09/18/25 Range/Units 16:35 15:23 12:05 WBC (4.8-10.8) x10^3/uL RBC (4.20-5.40) 10^6/uL Hgb (12.0-16.0) g/dL Hct (37.0-47.0) % MCV (81.0-99.0) fL MCH (27.0-31.0) pg MCHC (32.0-36.0) g/dL RDW (12.0-15.0) % Plt Count (130-450) 10^3/uL MPV (7.9-10.8) fL Sodium 126 L (135-145) mmol/L Potassium 4.5 (3.5-4.5) mmol/L Chloride 95 L (101-111) mmol/L Carbon Dioxide 23 (21-32) mmol/L Anion Gap 8.0 (6-13) BUN 54 H (6-20) mg/dL Creatinine 2.4 H (0.6-1.3) mg/dL Estimated GFR (MDRD) 20 L (>89) Glucose 320 H (74-104) mg/dL POC Whole Bld Glucose 289 328 (70-100) mg/dL Calcium 8.5 (8.5-10.3) mg/dL Assessment/Plan Problem List (1) E coli bacteremia: Impression: Blood cultures drawn 09/17 resulted with E coli. Source is likely urine. UA is contaminated. Patient does not endorse many urinary symptoms except for polyuria. SIRS criteria positive for tachypnea, leukocytosis, and tachycardia. Leukocytosis is slightly improved today. Afebrile for over 24 hours. Tachycardic, received metoprolol at 0921. - Continue daily ceftriaxone 2 gm IV daily for a total of 4 days with transition to oral antibiotics pending clinical improvement to complete a 7-14 day course. Currently on day 3 of IV ceftriaxone. (2) DKA (diabetic ketoacidosis): Qualifiers: Diabetes mellitus complication detail: without coma Diabetes mellitus type: type 2 Qualified Code(s): E11.10 - Type 2 diabetes mellitus with ketoacidosis without coma (3) High anion gap metabolic acidosis: Impression: Labs at admit: Serum glucose 567(H). Elevated urine glucose. Serum pH 7.31. Anion gap 17.0(H). Elevated serum and urine ketones. She was admitted for DKA. 11/7 AM started on a continuous insulin drip with IV fluids supplemental potassium and hourly POC glucose and BMP q 2 hours. 11/7 PM Bicarb and anion gap are within range. Bicarb 25. Anion gap 8.0. Pt started on long-acting insulin with sliding scale and diabetic diet. Continued to monitor glucose with meals. Pt switched to rapid-acting insulin. 09/18 She reports feeling much better. Bicarb (23) and anion gap (8.0) controlled. 09/19 She reports feeling about the same as yesterday. Bicarb (22) and anion gap (8.0) continue to be controlled. Discontinued IV fluids. Continue to monitor pt. The following plan is for the above diagnoses. - Continue daily labs (CBC, CMP, and Mg) - Continue to monitor pt glucose with meals - Was on Lantus 20 units at night, 5 units Lispro with meals, moderate dose sliding scale. Will increase to Lantus 25 units at night. - Continue carb-controlled diet - [employer] Grader consult - Insulin teaching when receiving insulin (4) Atrial fibrillation with RVR: Impression: No known previous history of Afib. Pt developed Afib with RVR at admission. Converted to sinus rhythm around 10 PM 09/17. Apixaban dose lowered to 2.5 mg. Switched to metoprolol succinate 50 mg qDAY. TTE completed, but not read. 09/19 AM Afib returned. Received metoprolol at 0921. - Continue metoprolol succinate 50 mg qDAY - Continue on apixaban 5 mg for clot prevention - Continue monitoring on tele. Consider cardioversion if it becomes persistent. Follow-up with OP cardiology (5) Acute kidney failure: Impression: Likely multifactorial due to pre-renal causes and intrisinc injury with hemodynamic ATN due to sepsis. Improving. IVF stopped. Rivas catheter in place for accurate [id number]. Will remove 09/20. Qualifiers: Acute renal failure type: unspecified Qualified Code(s): N17.9 - Acute kidney failure, unspecified (6) Uncontrolled diabetes mellitus: Impression: A1c 14.4% this admission. Patient with a noted history of non-compliance, has not seen a doctor in over 12 years. - Continue Lantus 25 units at night, 5 units Lispro with meals, moderate dose sliding scale as above. Qualifiers: Diabetes mellitus type: type 2 Glycemic state: with hyperglycemia Q ualified Code(s): E11.65 - Type 2 diabetes mellitus with hyperglycemia
[2025-09-19] MEDS: METOPROLOL SUCCINATE 50 MG TABLET PO SCH (09:21)
--- NOTE | 2025-09-19 12:25 | ECHO Report ---
Version: 1 Study ID: [id number] Adult Echocardiogram Report Name: ANDRÉS VARGHESE Study Date: 09/18/2025, 12: 05 PM BP: 125 / 84 mmHg Patient Location: ICU^2302^01 HR: 73 bpm : 1955 (MM/DD/YYYY) Gender: Female Height: 62 in Age: 69 Years Weight: 199 lb BSA: 1.91 m² Reason For Study: RAVEN History: Previous study 12/21/2013-EF 60%, No significant valve disease. Interpretation Summary Global left ventricular systolic function is normal. The visual left ventricular ejection fraction is estimated at 50 to 55%. The pulmonary artery systolic pressure is moderately increased. The right ventricular systolic pressure is 49mmHg Left Ventricle: The left ventricle is normal in size. There is borderline concentric increase in the wall thickness of the left ventricle. No thrombus seen in the left ventricle. The calculated ejection fraction, as determined by the biplane method of disks, is 55%. The visual left ventricular ejection fraction is estimated at 50 to 55%. Global left ventricular systolic function is normal. No regional wall motion abnormalities are present. The overall diastolic pattern is one of reduction of left ventricular compliance with elevated filling pressures manifested as pseudonormalization of the transmitral inflow velocities. Right Ventricle: The right ventricle is normal in size and function. TAPSE is consistent with borderline decreased right ventricular function. The tricuspid annular plane systolic excursion (TAPSE) measurement is 1.5 cm. Aortic Valve: The aortic valve is mildly calcified. The aortic valve is trileaflet. No hemodynamically significant valvular aortic stenosis. No aortic regurgitation is present. Mitral Valve: The mitral valve leaflets are mildly thickened. No evidence of mitral stenosis is seen. There is mild mitral regurgitation. Tricuspid Valve: The tricuspid valve is normal in structure and function. There is no tricuspid stenosis. Trace tricuspid regurgitation present. Pulmonic Valve: The pulmonic valve is normal in structure and function. There is no pulmonic valvular stenosis. Trace pulmonic valvular regurgitation is present. Left Atrium: The left atrial size is normal. Right Atrium: Right atrial size is normal. The inferior vena cava is mildly dilated with mildly decreased collapse with sniff (estimated right atrial pressure 10-15mmHg). Atrial Septum: The interatrial septum appears normal, without evidence of shunt by 2D imaging and color Doppler. Aorta: The ascending aorta is normal in size. The sinuses of Valsalva are normal in size. Pulmonary Artery: The pulmonary artery is not well visualized, but is probably normal size. The pulmonary artery systolic pressure is moderately increased. Inferior vena cava dynamics indicate moderately elevated right atrial pressures. The right ventricular systolic pressure is 49mmHg. Pericardium/Pleural Space: There is no pericardial effusion. Left Ventricle IVSd: 1.20 cm LVIDd: 4.3 cm LVPWd: 1.06 cm LVIDs: 3.1 cm EDV(MOD-sp4): 87.0 ml LVLd ap4: 8.2 cm ESV(MOD-sp4): 43.5 ml ESV(sp4-el): 68.5 ml LVLs ap4: 7.0 cm EDV(MOD-sp2): 64.4 ml ESV(MOD-sp2): 28.0 ml Right Ventricle TAPSE: 1.53 cm RV S Tony: 9.1 cm/sec Atria LA dimension: 5.8 cm LAV(MOD-sp4): 49.5 ml LAV(MOD-sp2): 48.0 ml Diastolic Function MV dec time: 0.23 sec MV E max tony: 106.7 cm/sec MV A max tony: 103.5 cm/sec Aortic Valve LVOT diam: 1.96 cm LV V1 mean P.55 mmHg LV V1 mean: 60.4 cm/sec LV V1 VTI: 19.0 cm Ao V2 VTI: 29.0 cm Ao mean P.2 mmHg Ao V2 mean: 97.6 cm/sec LV V1 max: 73.3 cm/sec LV V1 max P.15 mmHg Ao max P.2 mmHg Ao V2 max: 124.4 cm/sec Mitral Valve MV max P.7 mmHg MV V2 max: 108.6 cm/sec MV mean P.39 mmHg MV V2 mean: 72.9 cm/sec MV V2 VTI: 31.6 cm Tricuspid Valve TR max P.9 mmHg TR max tony: 291.2 cm/sec TV max P.9 mmHg Aorta Ao root diam: 2.43 cm MMode/2D Measurements & Calculations Ao root diam: 2.43 cm BMI: 36.4 kilograms/m² BSA([facility]): 2.03 m² EDV(MOD-sp2): 64.4 ml EDV(MOD-sp4): 87.0 ml ESV(MOD-sp2): 28.0 ml ESV(MOD-sp4): 43.5 ml ESV(sp4-el): 68.5 ml IVSd: 1.20 cm LA A4C-A/L: 22.0 cm² LA dimension: 5.8 cm LA ESV-A/L: 67.9 ml LA Vol Index: 29.9 ml/m² LAV(MOD-sp2): 48.0 ml LAV(MOD-sp4): 49.5 ml LVIDd: 4.3 cm LVIDs: 3.1 cm LVLd ap4: 8.2 cm LVLs ap4: 7.0 cm LVOT diam: 1.96 cm LVPWd: 1.06 cm RA A4Cs: 13.5 cm² TAPSE: 1.53 cm Doppler Measurements & Calculations Ao max P.2 mmHg Ao mean P.2 mmHg Ao V2 max: 124.4 cm/sec Ao V2 mean: 97.6 cm/sec Ao V2 VTI: 29.0 cm Lat E/e': 23.1 LV V1 max: 73.3 cm/sec LV V1 max P.15 mmHg LV V1 mean: 60.4 cm/sec LV V1 mean P.55 mmHg LV V1 VTI: 19.0 cm Med E/e': 17.7 MV A max tony: 103.5 cm/sec MV dec time: 0.23 sec MV DVI-pr: 1.03 MV E max tony: 106.7 cm/sec MV max P.7 mmHg MV mean P.39 mmHg MV V2 max: 108.6 cm/sec MV V2 mean: 72.9 cm/sec MV V2 VTI: 31.6 cm PA max P.03 mmHg PA V2 max: 71.2 cm/sec RV S Tony: 9.1 cm/sec TR max P.9 mmHg TR max tony: 291.2 cm/sec TV max P.9 mmHg Other Measurements & Calculations Ao root area: 4.6 cm² ALICE(I,D): 1.98 cm² ALICE(V,D): 1.78 cm² EDV(Teich): 83.3 ml EF(MOD-sp2): 56.6 % EF(MOD-sp4): 50.0 % EF(sp-el): 53.5 % EF(Teich): 54.5 % ESV(Teich): 37.9 ml FS: 28.0 % LVOT area: 3.0 cm² MV E/A: 1.03 MVA(VTI): 1.81 cm² SV(LVOT): 57.2 ml SV(MOD-sp4): 43.5 ml MD Paige Martin 09/19/2025, 12: 25 PM Ordering Physician: Naveed Christian Referring Physician: Roseanne Rodarte Performed By: RUBY
--- NOTE | 2025-09-19 16:23 | PT Plan of Care ---
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 She was hospitalized with DKA, high anion metabolic acidosis, a-fib with RVR, gram negative sepsis. PMH includes poorly controlled DM2, please see chart for complete medical hx. The pt was received resting prone in bed and presented today with decreased B UE and LE strength, decreased activity tolerance, and mild standing balance impairments all which limited her tolerance during functional mobility. Throughout all mobility assessment/training she required extra time and VC's to remain focused on the task at hand as she would become tangential. At this time recommend continued skilled PT intervention while in the acute setting and DC to SNF for further rehab once pt medically stable as she is functioning below her baseline level. This plan was discussed with the pt and she was reluctantly in agreement with this. At the end of the session the pt was sitting up in a chair with call light in reach, chair alarm in place and on, and all needs met. RN and MD updated on pt's status and DC rec. PATIENT/FAMILY GOALS Patient/Family Goals: TO get stronger and be able to go home GOALS Improve supine to sit to:: Modified Independent Improve sit to stand to:: Standby Assist Improve pivot transfer ability to:: Standby Assist Improve sit to supine to:: Modified Independent Improve gait ability to:: CGA Advance Assistive Device to:: Front Wheeled Walker Increase distance walked to (in feet):: 100 PLAN Frequency: 1-2x/day Duration: Until goals are met DISCHARGE RECOMMENDATIONS Discharge Location: [facility] Facility Support/Services Needed: With assist Other Discharge Equipment: pt owns all recommended DME Transport Needs at Discharge: Personal vehicle
[2025-09-19] MEDS: APIXABAN 5 MG TABLET PO SCH (21:18)
[2025-09-19] MEDS: INSULIN GLARGINE-YFGN 300 UNIT/3 ML PEN SUBQ SCH (21:18)
[2025-09-20 05:36] LABS: HCT - HEMATOCRIT 34.6 % (37.0-47.0); HGB - HEMOGLOBIN 11.3 g/dL (12.0-16.0); MEAN PLATELET VOLUME 12.8 fL (7.9-10.8); PLT - PLATELET COUNT 185.0 10^3/uL (130-450); RED CELL DISTRIBUTION WIDTH 14.1 % (12.0-15.0)
[2025-09-20 05:55] LABS: ALT ALANINE AMINOTRANSFERASE 21.0 IU/L (10-60); AST ASPARTATE AMINOTRANSFERASE 20.0 IU/L (10-42); BUN - BLOOD UREA NITROGEN 46.0 mg/dL (6-20); CARBON DIOXIDE - CO2 25.0 mmol/L (21-32); CREATININE 1.4 mg/dL (0.6-1.3); GFR - MDRD 37.0 (>89)
--- NOTE | 2025-09-20 10:02 | PROVIDER PROGRESS NOTE ---
Subjective Subjective Subjective: This morning, she was doing well. Her appetite still decreased, but she is able to eat some of her breakfast. She had 1 bowel movement yesterday. Nurse states that there was some concern for dark blood around the area. Her Rivas catheter was also removed with some bleeding noted. Will continue to monitor closely as Eliquis was recently started for her. She denies any fevers or chills. She has no more abdominal pain. She has no more nausea or recent episodes of emesis. Current Medications Current Medications Current Medications: Current Medications Generic Name Dose Route Start Last Admin Trade Name Freq PRN Reason Stop Dose Admin Acetaminophen 650 mg 09/17/25 10:52 09/17/25 21:23 Acetaminophen 325 Mg Tablet PO 650 mg Q4HR PRN Administration Pain 1 to 4, or Fever Apixaban 5 mg 09/19/25 21:00 09/20/25 08:30 Apixaban 5 Mg Tablet PO 5 mg BID FABIO Administration Ceftriaxone Sodium 2 gm 09/17/25 17:00 09/20/25 08:43 Ceftriaxone 2 Gm Vial IVP 2 gm DAILY FABIO Administration Insulin Glargine-yfgn 25 unit 09/19/25 21:00 09/19/25 21:18 Insulin Glargine-Yfgn 300 Unit/3 Ml Pen SUBQ 25 unit QPM FABIO Administration Insulin Human Lispro 1 - 9 unit 09/18/25 08:00 09/20/25 08:30 Insulin Lispro 300 Unit/3 Ml Pen SUBQ 1 unit 0800,1200,1700,2100 FABIO Administration Protocol Insulin Human Lispro 5 unit 09/18/25 17:00 09/20/25 08:30 Insulin Lispro 300 Unit/3 Ml Pen SUBQ 5 unit TIDWM FABIO Administration Metoprolol Succinate 50 mg 09/19/25 09:00 09/20/25 08:30 Metoprolol Succinate 50 Mg Tablet PO 50 mg DAILY FABIO Administration Ondansetron HCl 4 mg 09/17/25 10:52 Ondansetron Odt 4 Mg Tablet TL Q6HR PRN Nausea / Vomiting Ondansetron HCl 4 mg 09/17/25 10:52 09/18/25 13:12 Ondansetron 4 Mg/2 Ml Vial IVP 4 mg Q6HR PRN Administration Nausea / Vomiting Pantoprazole Sodium 40 mg 09/19/25 07:00 09/20/25 06:03 Pantoprazole 40 Mg Tablet PO 40 mg QDAC FABIO Administration Sodium Chloride 10 ml 09/17/25 17:00 09/20/25 08:43 Sodium Chloride Flush 0.9% 10 Ml Syringe IVP 10 ml 0100,0900,1700 FABIO Administration Sodium Chloride 10 ml 09/17/25 10:52 Sodium Chloride Flush 0.9% 10 Ml Syringe IVP PRN PRN NEEDED PER PROVIDER ORDERS Objective Vital Signs/Intake & Output Reviewed Vital Signs: Yes Vital Signs: Vital Signs x48h Temp Pulse Resp BP Pulse Ox 09/20/25 09:00 97.9 F 78 18 144/89 H 95 09/20/25 05:00 97.9 F 100 18 153/85 H 95 Intake & Output: Intake & Output 09/17/25 09/18/25 09/19/25 09/20/25 23:59 23:59 23:59 23:59 Intake Total 4961 / 4961 3646 / 3646 720 / 720 100 / 100 Output Total 50 / 50 550 / 550 2850 / 2850 800 / 800 Balance 4911 / 4911 3096 / 3096 -2130 / -2130 -700 / -700 Weight (kg) 86 kg 90.5 kg 90.5 kg 90.5 kg Objective General Appearance: positive No acute distress and Alert Eyes Bilateral: positive Normal inspection Neck: positive Nml inspection Respiratory: positive Chest non-tender, No respiratory distress, Breath sounds nml and Rales (Mild bibasilar crackles); negative Wheezes or Rhonchi Cardiovascular: positive No murmur, No gallop, Irregularly irregular and Tachycardia; negative Friction rub Peripheral Pulses: 2+: Radial (R), 2+: Radial (L), 2+: Dorsalis pedis (R), 2+: Dorsalis pedis (L), 2+: Posterior tibialis (R) and 2+: Posterior tibialis (L) Abdomen: positive Non-tender and No distention; negative Guarding, Rebound, Hepatomegaly or Mass Skin: positive Color nml, No rash and Warm Extremities: positive Non-tender, No pedal edema and Other (Yellowish toenails on left foot. Decreased sensation bilaterally in LE, worse on left foot. No apparent cellulitis, wounds, or infections.) Neurologic/Psychiatric: positive Oriented x3, Sensation nml (Diminished LE sensation bilaterally) and Mood/affect nml Lab Results 09/20/25 05:02 09/20/25 05:02 Other Labs: Lab Results x24hrs 09/20/25 09/20/25 09/19/25 Range/Units 07:46 05:02 20:44 WBC 15.7 H (4.8-10.8) x10^3/uL RBC 3.97 L (4.20-5.40) 10^6/uL Hgb 11.3 L (12.0-16.0) g/dL Hct 34.6 L (37.0-47.0) % MCV 87.2 (81.0-99.0) fL MCH 28.5 (27.0-31.0) pg MCHC 32.7 (32.0-36.0) g/dL RDW 14.1 (12.0-15.0) % Plt Count 185 (130-450) 10^3/uL MPV 12.8 H (7.9-10.8) fL Sodium 131 L (135-145) mmol/L Potassium 4.0 (3.5-4.5) mmol/L Chloride 100 L (101-111) mmol/L Carbon Dioxide 25 (21-32) mmol/L Anion Gap 6.0 (6-13) BUN 46 H (6-20) mg/dL Creatinine 1.4 H (0.6-1.3) mg/dL Estimated GFR (MDRD) 37 L (>89) Glucose 151 H (74-104) mg/dL POC Whole Bld Glucose 143 213 (70-100) mg/dL Calcium 8.3 L (8.5-10.3) mg/dL Magnesium 2.1 (1.7-2.3) mg/dL Total Bilirubin 0.3 (0.2-1.0) mg/dL AST 20 (10-42) IU/L ALT 21 (10-60) IU/L Alkaline Phosphatase 304 H (42-121) IU/L Total Protein 5.3 L (6.4-8.9) g/dL Albumin 2.4 L (3.2-5.5) g/dL Globulin 2.9 (2.1-4.2) g/dL Albumin/Globulin Ratio 0.8 L (1.0-2.2) 09/19/25 09/19/25 Range/Units 16:42 11:33 WBC (4.8-10.8) x10^3/uL RBC (4.20-5.40) 10^6/uL Hgb (12.0-16.0) g/dL Hct (37.0-47.0) % MCV (81.0-99.0) fL MCH (27.0-31.0) pg MCHC (32.0-36.0) g/dL RDW (12.0-15.0) % Plt Count (130-450) 10^3/uL MPV (7.9-10.8) fL Sodium (135-145) mmol/L Potassium (3.5-4.5) mmol/L Chloride (101-111) mmol/L Carbon Dioxide (21-32) mmol/L Anion Gap (6-13) BUN (6-20) mg/dL Creatinine (0.6-1.3) mg/dL Estimated GFR (MDRD) (>89) Glucose (74-104) mg/dL POC Whole Bld Glucose 169 199 (70-100) mg/dL Calcium (8.5-10.3) mg/dL Magnesium (1.7-2.3) mg/dL Total Bilirubin (0.2-1.0) mg/dL AST (10-42) IU/L ALT (10-60) IU/L Alkaline Phosphatase (42-121) IU/L Total Protein (6.4-8.9) g/dL Albumin (3.2-5.5) g/dL Globulin (2.1-4.2) g/dL Albumin/Globulin Ratio (1.0-2.2) Assessment/Plan Problem List (1) E coli bacteremia: Impression: Patient with tachycardia, leukocytosis. Leukocytosis has decrease from 22.1- 15.7. Has been stable around 15 for many days. Blood cultures are positive for E. coli, pansensitive, drawn on admission, 09/17. Due to persistent leukocytosis, will continue on IV Rocephin for now. Today is day 4 of antibiotics. (2) DKA (diabetic ketoacidosis): Qualifiers: Diabetes mellitus complication detail: without coma Diabetes mellitus type: type 2 Qualified Code(s): E11.10 - Type 2 diabetes mellitus with ketoacidosis without coma (3) High anion gap metabolic acidosis: Impression: The following is for the above 2 diagnoses. Patient presented with diabetic ketoacidosis. Resolved. A1c was found to be elevated at 14.4% this admission. Has not been transition out of DKA. Will continue Lantus 25 units at night, 5 units of lispro with meal, as well as a sliding scale insulin. Continue to titrate. Diabetic diet ordered, dietitian has been consulted, she will follow-up in her diabetic clinic as well. (4) Atrial fibrillation with RVR: Impression: Patient likely has paroxysmal atrial fibrillation. This is a new diagnosis for her. While she has been here, she has alternated between normal sinus and atrial fibrillation. Currently in atrial fibrillation. Rate is now controlled. Continue metoprolol succinate 50 mg daily. Continue Eliquis 5 mg twice daily. [id number] of 3. Continue telemetry. Follow-up with cardiology outpatient. Continue to monitor for signs of bleeding. Some bleeding noted after large bowel movement today, concern for hemorrhoids. (5) Acute kidney failure: Impression: Improving. Presented with a creatinine of 2.4. Improved to 1.4 today. No baseline creatinine in our system. Likely hemodynamic ATN due to sepsis. Received adequate IV hydration, and is now eating and drinking well. Qualifiers: Acute renal failure type: unspecified Qualified Code(s): N17.9 - Acute kidney failure, unspecified (6) Uncontrolled diabetes mellitus: Impression: A1c 14.4% this admission. Patient with a noted history of non-compliance, has not seen a doctor in over 12 years. Continue Lantus 25 units at night, 5 units Lispro with meals, moderate dose sliding scale as above. Diabetic diet ordered, dietitian has been consulted, she will follow-up in her diabetic clinic as well. Qualifiers: Diabetes mellitus type: type 2 Glycemic state: with hyperglycemia Q ualified Code(s): E11.65 - Type 2 diabetes mellitus with hyperglycemia (7) Muscular deconditioning: Impression: Physical therapy recommends SNF. Patient is still deciding if this is something that she would like to proceed with, although her children have stated they'd like this. Daughter provided choices. Will continue to follow with patient regarding her wishes.
[2025-09-21 05:30] LABS: HCT - HEMATOCRIT 38.9 % (37.0-47.0); HGB - HEMOGLOBIN 12.2 g/dL (12.0-16.0); MEAN PLATELET VOLUME 12.2 fL (7.9-10.8); PLT - PLATELET COUNT 205.0 10^3/uL (130-450); RED CELL DISTRIBUTION WIDTH 14.4 % (12.0-15.0)
[2025-09-21 05:45] LABS: BUN - BLOOD UREA NITROGEN 39.0 mg/dL (6-20); CARBON DIOXIDE - CO2 25.0 mmol/L (21-32); CREATININE 1.1 mg/dL (0.6-1.3); GFR - MDRD 49.0 (>89)
--- NOTE | 2025-09-21 08:25 | PROVIDER PROGRESS NOTE ---
Subjective Prog Note Date Prog Note Date: 09/21/25 Prog Note Time: 08:24 Subjective Subjective: Remains clinically stable. Rate remains controlled. Blood glucose remained controlled. WBC still elevated this morning. No differential was ordered, Added on this morning. Her neutrophil count has reduced dramatically. Her vital signs remained stable. She has remained afebrile. Blood pressure is robust. Patient reports that she feels a persistent malaise since her illness started. It improved somewhat, but not resolved. She did not eat for several days given her DKA. She was vomiting for at least 3 days at home without sufficient oral intake. Current Medications Current Medications Current Medications: Current Medications Generic Name Dose Route Start Last Admin Trade Name Freq PRN Reason Stop Dose Admin Acetaminophen 650 mg 09/17/25 10:52 09/17/25 21:23 Acetaminophen 325 Mg Tablet PO 650 mg Q4HR PRN Administration Pain 1 to 4, or Fever Apixaban 5 mg 09/19/25 21:00 09/20/25 20:47 Apixaban 5 Mg Tablet PO 5 mg BID FABIO Administration Ceftriaxone Sodium 2 gm 09/17/25 17:00 09/20/25 08:43 Ceftriaxone 2 Gm Vial IVP 2 gm DAILY FABIO Administration Insulin Glargine-yfgn 25 unit 09/19/25 21:00 09/20/25 20:48 Insulin Glargine-Yfgn 300 Unit/3 Ml Pen SUBQ 25 unit QPM FABIO Administration Insulin Human Lispro 1 - 9 unit 09/18/25 08:00 09/21/25 08:07 Insulin Lispro 300 Unit/3 Ml Pen SUBQ 1 unit 0800,1200,1700,2100 FABIO Administration Protocol Insulin Human Lispro 5 unit 09/18/25 17:00 09/21/25 08:07 Insulin Lispro 300 Unit/3 Ml Pen SUBQ 5 unit TIDWM FABIO Administration Metoprolol Succinate 50 mg 09/19/25 09:00 09/20/25 08:30 Metoprolol Succinate 50 Mg Tablet PO 50 mg DAILY FABIO Administration Ondansetron HCl 4 mg 09/17/25 10:52 Ondansetron Odt 4 Mg Tablet TL Q6HR PRN Nausea / Vomiting Ondansetron HCl 4 mg 09/17/25 10:52 09/18/25 13:12 Ondansetron 4 Mg/2 Ml Vial IVP 4 mg Q6HR PRN Administration Nausea / Vomiting Pantoprazole Sodium 40 mg 09/19/25 07:00 09/21/25 04:40 Pantoprazole 40 Mg Tablet PO 40 mg QDAC FABIO Administration Sodium Chloride 10 ml 09/17/25 17:00 09/21/25 00:18 Sodium Chloride Flush 0.9% 10 Ml Syringe IVP 10 ml 0100,0900,1700 FABIO Administration Sodium Chloride 10 ml 09/17/25 10:52 Sodium Chloride Flush 0.9% 10 Ml Syringe IVP PRN PRN NEEDED PER PROVIDER ORDERS Objective Vital Signs/Intake & Output Reviewed Vital Signs: Yes Vital Signs: Vital Signs x48h Temp Pulse Resp BP BP Pulse Ox 09/21/25 07:35 36.2 C L 77 20 168/73 H 97 09/21/25 05:00 36.4 C L 80 20 165/69 H 96 Intake & Output: Intake & Output 09/18/25 09/19/25 09/20/25 09/21/25 23:59 23:59 23:59 23:59 Intake Total 3646 / 3646 720 / 720 500 / 500 200 / 200 Output Total 550 / 550 2850 / 2850 1974 / 1974 250 / 250 Balance 3096 / 3096 -2130 / -2130 -1475 / -1475 -50 / -50 Weight (kg) 90.5 kg 90.5 kg 90.5 kg 89.5 kg Objective Comments/Other: GEN: No acute distress. Appears older than stated age. HEENT: NC/AT, normal appearance of external ears and nose. Hearing baseline. Cardiac: Irregular irregular rhythm. Rate controlled. No murmurs or gallops. Pulm: No adventitial lung sounds. Normal effort on room air. Abdomen: Soft, nontender, nondistended. No rebound or guarding Extremities: Moves all 4 extremities equally. Normal tone. Neuro: Face symmetric, CN II through XII intact grossly. Gait exam deferred Psych: Mood euthymic with congruent affect. Lab Results 09/21/25 05:05 09/21/25 05:05 Other Labs: Lab Results x24hrs 09/21/25 09/21/25 09/20/25 Range/Units 07:30 05:05 20:39 WBC 15.8 H (4.8-10.8) x10^3/uL RBC 4.31 (4.20-5.40) 10^6/uL Hgb 12.2 (12.0-16.0) g/dL Hct 38.9 (37.0-47.0) % MCV 90.3 (81.0-99.0) fL MCH 28.3 (27.0-31.0) pg MCHC 31.4 L (32.0-36.0) g/dL RDW 14.4 (12.0-15.0) % Plt Count 205 (130-450) 10^3/uL MPV 12.2 H (7.9-10.8) fL Sodium 131 L (135-145) mmol/L Potassium 4.0 (3.5-4.5) mmol/L Chloride 99 L (101-111) mmol/L Carbon Dioxide 25 (21-32) mmol/L Anion Gap 7.0 (6-13) BUN 39 H (6-20) mg/dL Creatinine 1.1 (0.6-1.3) mg/dL Estimated GFR (MDRD) 49 L (>89) Glucose 174 H (74-104) mg/dL POC Whole Bld Glucose 176 192 (70-100) mg/dL Calcium 8.2 L (8.5-10.3) mg/dL Magnesium 2.3 (1.7-2.3) mg/dL 09/20/25 09/20/25 Range/Units 16:39 11:23 WBC (4.8-10.8) x10^3/uL RBC (4.20-5.40) 10^6/uL Hgb (12.0-16.0) g/dL Hct (37.0-47.0) % MCV (81.0-99.0) fL MCH (27.0-31.0) pg MCHC (32.0-36.0) g/dL RDW (12.0-15.0) % Plt Count (130-450) 10^3/uL MPV (7.9-10.8) fL Sodium (135-145) mmol/L Potassium (3.5-4.5) mmol/L Chloride (101-111) mmol/L Carbon Dioxide (21-32) mmol/L Anion Gap (6-13) BUN (6-20) mg/dL Creatinine (0.6-1.3) mg/dL Estimated GFR (MDRD) (>89) Glucose (74-104) mg/dL POC Whole Bld Glucose 110 180 (70-100) mg/dL Calcium (8.5-10.3) mg/dL Magnesium (1.7-2.3) mg/dL Assessment/Plan Problem List (1) E coli bacteremia: Impression: Initially septic on arrival. Her vital signs have since stabilized. She is nontachycardic. Nontachypneic. Her leukocytosis is downtrended but not resolved. Blood cultures positive for E. coli which is pansensitive. She has been treated with ceftriaxone for 5 days now. Leukocytosis persistently elevated, came down to 15 but has not moved from there much. Added on differential on 09/21, neutrophil count is improved from 22,000 down to 10,000. She has had CT scans which are negative for any occult infection, stone, hydronephrosis, or abscess. No other localizing symptoms. Given clinical stability, de-escalating to oral antibiotics, Bactrim. Little value for follow-up blood cultures and gram-negative bacteremia as long as sensitive to empiric treatment (Torres 2017). - Will complete 7 days of total antibiotic coverage for GN bacteremia o Transition to Bactrim twice daily - Repeat CBC with differential in the morning - If neutrophil count downtrending to stable, patient will be med ready for discharge (2) DKA (diabetic ketoacidosis): Qualifiers: Diabetes mellitus complication detail: without coma Diabetes mellitus type: type 2 Qualified Code(s): E11.10 - Type 2 diabetes mellitus with ketoacidosis without coma (3) Uncontrolled diabetes mellitus: Qualifiers: Diabetes mellitus type: type 2 Glycemic state: with hyperglycemia Q ualified Code(s): E11.65 - Type 2 diabetes mellitus with hyperglycemia (4) High anion gap metabolic acidosis: Impression: Resolved Blood glucose have been more stable, ranging 110-190. Initially presented in DKA. This is in the setting of prolonged uncontrolled diabetes. She has been neglecting her own care for some time. Previously was managed with just oral glycemic control agents. A1c this admission 14.4% Initially treated with fluids and insulin drip, has since been transitioned to basal bolus insulin. - Continue Lantus 25 units nightly, 7 units lispro before every meal - Continue sliding scale insulin with diabetic diet - Will need outpatient PCP follow-up, appreciate case management. (5) Atrial fibrillation with RVR: Impression: Presented with new diagnosis of paroxysmal atrial fibrillation. Was in RVR on initial arrival. Has since stabilized on beta-blockers. Having some ectopy on telemetry, but overall rate controlled. No medication adjustments for the last several days. [id number] = 2 Has been started on DOAC as well as metoprolol succinate 50 mg daily No hemodynamically significant bleeding since starting on DOAC. Is having some urethral versus hemorrhoidal bleeding but counts remain stable. - Discontinue telemetry - Continue beta-susan - Continue DOAC - Will monitor blood counts 1 more time the morning (6) Acute kidney failure: Impression: Resolved Patient's creatinine is back to normal. Initial presentation. Creatinine 2.4 in the setting of her DKA and attendant profound volume loss. Suspect overall was ATN in the setting of sepsis and dehydration. - Continue oral hydration - Monitor BMP 1 more day Qualifiers: Acute renal failure type: unspecified Qualified Code(s): N17.9 - Acute kidney failure, unspecified (7) Muscular deconditioning: Impression: Profound deconditioning from her acute illness as well as likely chronic from uncontrolled diabetes. PT is recommended SNF. Her daughter is encouraging of this and [facility]. - Provided she continues to have clinical stability likely med ready for discharge to SNF on 09/22. - Will need POLST prior to discharge, ACP note pending I spent a total of 47 minutes in the care of this patient today. This time was spent reviewing labs, vital signs, imaging, interviewing and examining the patient, and discussing plan of care with them and their other care providers
[2025-09-21 09:16] LABS: HCT - HEMATOCRIT 37.5 % (37.0-47.0); HGB - HEMOGLOBIN 12.0 g/dL (12.0-16.0); MEAN PLATELET VOLUME 13.2 fL (7.9-10.8); NRBC ABSOLUTE COUNT (AUTO) 0.03 x10^3/uL; NUCLEATED RED BLOOD CELLS AUTO 0.2 /100WBC; PLT - PLATELET COUNT 214 10^3/uL (130-450); RED CELL DISTRIBUTION WIDTH 14.5 % (12.0-15.0)
[2025-09-21] MEDS: SODIUM CHLORIDE FLUSH 0.9% 10 ML SYRINGE IVP PRN (09:21)
[2025-09-21 09:38] LABS: SLIDE REVIEW? Indicated
[2025-09-21 09:51] LABS: PLATELET ESTIMATE, MANUAL NORMAL (130-450,000) (NORMAL); RBC MORPHOLOGY (MULTIPLE) 4+ ANISOCYTOSIS (NORMAL)
[2025-09-21] MEDS: SULFAMETH/TRIMETH DS 800/160 MG TABLET PO SCH (20:37)
[2025-09-22 05:45] LABS: HCT - HEMATOCRIT 37.8 % (37.0-47.0); HGB - HEMOGLOBIN 12.6 g/dL (12.0-16.0); MEAN PLATELET VOLUME 11.3 fL (7.9-10.8); PLT - PLATELET COUNT 268 10^3/uL (130-450); RED CELL DISTRIBUTION WIDTH 14.3 % (12.0-15.0)
[2025-09-22 05:53] LABS: BUN - BLOOD UREA NITROGEN 32.0 mg/dL (6-20); CARBON DIOXIDE - CO2 24.0 mmol/L (21-32); CREATININE 1.1 mg/dL (0.6-1.3); GFR - MDRD 49.0 (>89)
[2025-09-22 06:02] LABS: ABNORMAL LYMPHS % (MANUAL) 0 %; BASOPHILS # (MANUAL) 0.0 10^3/uL (0-0.1); EOSINOPHILS # (MANUAL) 0.0 10^3/uL (0-0.7)
[2025-09-22 06:56] LABS: BAND NEUTROPHILS % (MANUAL) 5 %; LYMPHOCYTES # (MANUAL) 2.8 10^3/uL (1.5-3.5); LYMPHOCYTES % (MANUAL) 16 %; MONOCYTES # (MANUAL) 1.1 10^3/uL (0.0-1.0); NEUTROPHILS # (MANUAL) 11.6 10^3/uL (1.5-6.6); REACTIVE LYMPHS % (MANUAL) 2 %
[2025-09-22 06:57] LABS: PLATELET ESTIMATE, MANUAL NORMAL (130-450,000) (NORMAL); PLATELET MORPHOLOGY NORMAL APPEARANCE (NORMAL); RBC MORPHOLOGY (MULTIPLE) NORMAL APPEARANCE (NORMAL); WBC MORPHOLOGY (MULTIPLE) NORMAL APPEARANCE (NORMAL)
--- NOTE | 2025-09-22 07:47 | PROVIDER PROGRESS NOTE ---
Subjective Prog Note Date Prog Note Date: 09/22/25 Prog Note Time: 07:44 Subjective Subjective: Stable vital signs overnight. Blood pressure 163/62. Pulse is a little low this morning on a.m. vitals 46. Patient asymptomatic. Has remained afebrile. Satting normal on room air. Her white blood cell count has not improved. Remains around 15. ANC remains around 11. No other localizing signs of infection. Recall she did have an echocardiogram earlier this admission. No vegetations were seen. She had a chest x-ray without any infiltrate. Her lung exam is benign. She has no wounds. No intra-abdominal symptoms. Denies any localizing pain. By all accounts, she was ready for discharge as of this morning, but on evaluation today she has a new left parasternal cardiac murmur that has not been noted by prior doctors and was not apparent yesterday. Given her persistent leukocytosis, I am concerned about her having endocarditis, though this is rare in cases of E. coli. Her blood sugars have been more tightly controlled today, which may represent improvement in her infection. Backing down on her insulin today. Current Medications Current Medications Current Medications: Current Medications Generic Name Dose Route Start Last Admin Trade Name Freq PRN Reason Stop Dose Admin Acetaminophen 650 mg 09/17/25 10:52 09/17/25 21:23 Acetaminophen 325 Mg Tablet PO 650 mg Q4HR PRN Administration Pain 1 to 4, or Fever Apixaban 5 mg 09/19/25 21:00 09/21/25 20:37 Apixaban 5 Mg Tablet PO 5 mg BID FABIO Administration Insulin Human Lispro 1 - 9 unit 09/18/25 08:00 09/21/25 20:37 Insulin Lispro 300 Unit/3 Ml Pen SUBQ 3 unit 0800,1200,1700,2100 FABIO Administration Protocol Insulin Human Lispro 7 unit 09/22/25 08:00 Insulin Lispro 300 Unit/3 Ml Pen SUBQ TIDWM [facility] Metoprolol Succinate 50 mg 09/19/25 09:00 09/21/25 09:21 Metoprolol Succinate 50 Mg Tablet PO 50 mg DAILY FABIO Administration Ondansetron HCl 4 mg 09/17/25 10:52 Ondansetron Odt 4 Mg Tablet TL Q6HR PRN Nausea / Vomiting Ondansetron HCl 4 mg 09/17/25 10:52 09/18/25 13:12 Ondansetron 4 Mg/2 Ml Vial IVP 4 mg Q6HR PRN Administration Nausea / Vomiting Pantoprazole Sodium 40 mg 09/19/25 07:00 09/22/25 06:14 Pantoprazole 40 Mg Tablet PO 40 mg QDAC FABIO Administration Sodium Chloride 10 ml 09/17/25 17:00 09/21/25 23:59 Sodium Chloride Flush 0.9% 10 Ml Syringe IVP 10 ml 0100,0900,1700 FABIO Administration Sodium Chloride 10 ml 09/17/25 10:52 09/21/25 09:21 Sodium Chloride Flush 0.9% 10 Ml Syringe IVP 10 ml PRN PRN Administration NEEDED PER PROVIDER ORDERS Trimethoprim/Sulfamethoxazole 1 tab 09/21/25 21:00 09/21/25 20:37 Sulfameth/Trimeth Ds 800/160 Mg Tablet PO 09/24/25 20:59 1 tab BID FABIO Administration Objective Vital Signs/Intake & Output Reviewed Vital Signs: Yes Vital Signs: Vital Signs x48h Temp Pulse Resp BP Pulse Ox 09/22/25 07:29 36.4 C L 46 L 24 163/62 H 96 09/21/25 23:47 36.5 C 79 20 129/63 94 Intake & Output: Intake & Output 09/19/25 09/20/25 09/21/25 09/22/25 23:59 23:59 23:59 23:59 Intake Total 720 / 720 500 / 500 740 / 740 200 / 200 Output Total 2850 / 2850 1974 / 1974 750 / 750 1600 / 1600 Balance -2130 / -2130 -1475 / -1475 -10 / -10 -1400 / -1400 Weight (kg) 90.5 kg 90.5 kg 89.5 kg 89.5 kg Objective Comments/Other: GEN: No acute distress. Appears older than stated age. HEENT: NC/AT, normal appearance of external ears and nose. Hearing baseline. Cardiac: Irregular irregular rhythm. Rate controlled. New left parasternal 3/6 systolic murmur. She has an S3 gallop associated. Pulm: No adventitial lung sounds. Normal effort on room air. Abdomen: Soft, nontender, nondistended. No rebound or guarding Extremities: Moves all 4 extremities equally. Normal tone. Neuro: Face symmetric, CN II through XII intact grossly. Gait exam deferred Psych: Mood euthymic with congruent affect. Lab Results 09/22/25 05:11 09/22/25 05:11 Other Labs: Lab Results x24hrs 09/22/25 09/22/25 09/21/25 Range/Units 07:22 05:11 20:35 WBC 15.4 H (4.8-10.8) x10^3/uL RBC 4.31 (4.20-5.40) 10^6/uL Hgb 12.6 (12.0-16.0) g/dL Hct 37.8 (37.0-47.0) % MCV 87.7 (81.0-99.0) fL MCH 29.2 (27.0-31.0) pg MCHC 33.3 (32.0-36.0) g/dL RDW 14.3 (12.0-15.0) % Plt Count 268 (130-450) 10^3/uL MPV 11.3 H (7.9-10.8) fL Neut # (Auto) Not Reportable (1.5-6.6) 10^3/uL Lymph # (Auto) Not Reportable (1.5-3.5) 10^3/uL [place] # (Auto) Not Reportable (0.0-1.0) 10^3/uL Eos # (Auto) Not Reportable (0.0-0.7) 10^3/uL Baso # (Auto) Not Reportable (0.0-0.1) 10^3/uL Absolute Nucleated RBC Not Reportable x10^3/uL Total Counted 100 Band Neuts % (Manual) 5 (0 - 10) % Reactive Lymphs % (Man) 2 % Abnorm Lymph % (Manual) 0 % Nucleated RBC % Not Reportable /100WBC Neutrophils # (Manual) 11.6 H (1.5-6.6) 10^3/uL Lymphocytes # (Manual) 2.8 (1.5-3.5) 10^3/uL Monocytes # (Manual) 1.1 H (0.0-1.0) 10^3/uL Eosinophils # (Manual) 0.0 (0-0.7) 10^3/uL Basophils # (Manual) 0.0 (0-0.1) 10^3/uL Differential Comment MANUAL DIFFERENTIAL Manual Slide Review WBC Morphology NORMAL APPEARANCE (NORMAL) Platelet Estimate NORMAL (130-450,000) (NORMAL) Platelet Morphology NORMAL APPEARANCE (NORMAL) RBC Morph Micro Appear NORMAL APPEARANCE (NORMAL) Sodium 134 L (135-145) mmol/L Potassium 3.9 (3.5-4.5) mmol/L Chloride 102 (101-111) mmol/L Carbon Dioxide 24 (21-32) mmol/L Anion Gap 8.0 (6-13) BUN 32 H (6-20) mg/dL Creatinine 1.1 (0.6-1.3) mg/dL Estimated GFR (MDRD) 49 L (>89) Glucose 98 (74-104) mg/dL POC Whole Bld Glucose 91 186 (70-100) mg/dL Calcium 8.2 L (8.5-10.3) mg/dL 09/21/25 09/21/25 09/21/25 Range/Units 16:38 11:07 05:05 WBC 16.2 H (4.8-10.8) x10^3/uL RBC 4.15 L (4.20-5.40) 10^6/uL Hgb 12.0 (12.0-16.0) g/dL Hct 37.5 (37.0-47.0) % MCV 90.4 (81.0-99.0) fL MCH 28.9 (27.0-31.0) pg MCHC 32.0 (32.0-36.0) g/dL RDW 14.5 (12.0-15.0) % Plt Count 214 (130-450) 10^3/uL MPV 13.2 H (7.9-10.8) fL Neut # (Auto) 10.7 H (1.5-6.6) 10^3/uL Lymph # (Auto) 2.7 (1.5-3.5) 10^3/uL [place] # (Auto) 1.4 H (0.0-1.0) 10^3/uL Eos # (Auto) 0.1 (0.0-0.7) 10^3/uL Baso # (Auto) 0.1 (0.0-0.1) 10^3/uL Absolute Nucleated RBC 0.03 x10^3/uL Total Counted Band Neuts % (Manual) (0 - 10) % Reactive Lymphs % (Man) % Abnorm Lymph % (Manual) % Nucleated RBC % 0.2 /100WBC Neutrophils # (Manual) (1.5-6.6) 10^3/uL Lymphocytes # (Manual) (1.5-3.5) 10^3/uL Monocytes # (Manual) (0.0-1.0) 10^3/uL Eosinophils # (Manual) (0-0.7) 10^3/uL Basophils # (Manual) (0-0.1) 10^3/uL Differential Comment Manual Slide Review Indicated WBC Morphology (NORMAL) Platelet Estimate NORMAL (130-450,000) (NORMAL) Platelet Morphology (NORMAL) RBC Morph Micro Appear 4+ ANISOCYTOSIS (NORMAL) Sodium (135-145) mmol/L Potassium (3.5-4.5) mmol/L Chloride (101-111) mmol/L Carbon Dioxide (21-32) mmol/L Anion Gap (6-13) BUN (6-20) mg/dL Creatinine (0.6-1.3) mg/dL Estimated GFR (MDRD) (>89) Glucose (74-104) mg/dL POC Whole Bld Glucose 178 225 (70-100) mg/dL Calcium (8.5-10.3) mg/dL Assessment/Plan Problem List (1) E coli bacteremia: Impression: Stable and not improving. Her vital signs remained stable. Her leukocytosis remains present. Her ANC increased intervally between yesterday and today. She has a new Left parasternal cardiac murmur and gallop. Recall she was initially septic on arrival. Her vital signs have since stabilized. She is nontachycardic. Nontachypneic. Her leukocytosis is downtrended but not resolved. Blood cultures positive for E. coli which is pansensitive. Started initially on ceftriaxone. Given clinical stability, was de-escalated from IV ceftriaxone to oral Bactrim on 09/21. Leukocytosis persistently elevated, came down to 15 but has not moved from there much. She has had CT scans which are negative for any occult infection, stone, hydronephrosis, or abscess. No other localizing symptoms. - Will complete 7 days of total antibiotic coverage for GN bacteremia, EOT tentatively 09/24 - Will get clearance cultures today given persistent leukocytosis and murmur. - Limited TTE to evaluate valves. - CBC with differential in a.m. - If TTE is unremarkable and clearance cultures remain negative, she may again be medically ready for discharge (2) Uncontrolled diabetes mellitus: Impression: Blood sugars are now low. She has been in the 90s and 100s earlier today. Her blood glucose dropped from 180 down to 98 overnight. Suspect her sugars may be normalizing somewhat with resolution of her infection. Her appetite ostensibly is unchanged. A1c this admission 14.4% Initially treated with fluids and insulin drip, has since been transitioned to basal bolus insulin. Recall she has not been on any glycemic control agents for several months to years prior to her admission. She does not have a primary care doctor. - Reduce glargine to 15 units nightly - Lispro reduced to 5 units before every meal - Continue sliding scale insulin with diabetic diet - Will need outpatient PCP follow-up, appreciate case management. Qualifiers: Diabetes mellitus type: type 2 Glycemic state: with hyperglycemia Q ualified Code(s): E11.65 - Type 2 diabetes mellitus with hyperglycemia (3) Atrial fibrillation with RVR: Impression: No longer in RVR. Continues to have an irregular regular rhythm. Pulses been variable but low generally. She has generally been rate controlled in the 70s and 80s. Recall that she presented with new diagnosis of paroxysmal atrial fibrillation. Was in RVR on initial arrival. Has since stabilized on beta-blockers. Was having some ectopy on telemetry, but overall rate controlled. Telemetry was discontinued on 09/21 after multiple days of no medication adjustments. [id number] = 2 Has been started on DOAC as well as metoprolol succinate 50 mg daily No hemodynamically significant bleeding since starting on DOAC. Is having some urethral versus hemorrhoidal bleeding but counts remain stable. - Continue Toprol-XL 50 mg daily - Continue DOAC - CBC as above (4) DKA (diabetic ketoacidosis): Qualifiers: Diabetes mellitus complication detail: without coma Diabetes mellitus type: type 2 Qualified Code(s): E11.10 - Type 2 diabetes mellitus with ketoacidosis without coma (5) High anion gap metabolic acidosis: Impression: Resolved Managing diabetes as above. Initially presented in DKA. This is in the setting of prolonged uncontrolled diabetes. She has been neglecting her own care for some time. Previously was managed with just oral glycemic control agents. (6) Acute kidney failure: Impression: Resolved Patient's creatinine is back to normal. Initial presentation. Creatinine 2.4 in the setting of her DKA and attendant profound volume loss. Suspect overall was ATN in the setting of sepsis and dehydration. - Continue to encourage oral hydration Qualifiers: Acute renal failure type: unspecified Qualified Code(s): N17.9 - Acute kidney failure, unspecified (7) Muscular deconditioning: Impression: Profound deconditioning from her acute illness as well as likely chronic from uncontrolled diabetes. PT is recommended SNF. Her [facility] is [facility] - Provided she continues to have clinical stability likely med ready for discharge to SNF on 09/22. - Will need POLST prior to discharge, ACP note pending I spent a total of 41 minutes in the care of this patient today. This time was spent reviewing labs, vital signs, imaging, interviewing and examining the patient, and discussing plan of care with them and their other care providers.
[2025-09-22] MEDS: INSULIN LISPRO 300 UNIT/3 ML PEN SUBQ SCH ×2 (08:23→16:57)
[2025-09-22] MEDS: INSULIN GLARGINE-YFGN 300 UNIT/3 ML PEN SUBQ SCH (20:19)
[2025-09-22] MEDS ORDERED: INSULIN GLARGINE-YFGN 300 UNIT/3 ML PEN SUBQ SCH (21:00)
[2025-09-23 05:43] LABS: HCT - HEMATOCRIT 35.0 % (37.0-47.0); HGB - HEMOGLOBIN 11.0 g/dL (12.0-16.0); MEAN PLATELET VOLUME 11.0 fL (7.9-10.8); PLT - PLATELET COUNT 300 10^3/uL (130-450); RED CELL DISTRIBUTION WIDTH 14.5 % (12.0-15.0)
[2025-09-23 05:45] LABS: ABNORMAL LYMPHS % (MANUAL) 0 %; BASOPHILS # (MANUAL) 0.0 10^3/uL (0-0.1); EOSINOPHILS # (MANUAL) 0.0 10^3/uL (0-0.7)
[2025-09-23 06:02] LABS: BUN - BLOOD UREA NITROGEN 28.0 mg/dL (6-20); CARBON DIOXIDE - CO2 25.0 mmol/L (21-32); CREATININE 1.3 mg/dL (0.6-1.3); GFR - MDRD 40.0 (>89)
[2025-09-23 06:29] LABS: BAND NEUTROPHILS % (MANUAL) 2 %; LYMPHOCYTES # (MANUAL) 4.8 10^3/uL (1.5-3.5); LYMPHOCYTES % (MANUAL) 29 %; METAMYELOCYTES % (MANUAL) 1 %; MONOCYTES # (MANUAL) 0.8 10^3/uL (0.0-1.0); MYELOCYTES % (MANUAL) 2 %; NEUTROPHILS # (MANUAL) 10.5 10^3/uL (1.5-6.6)
[2025-09-23 06:31] LABS: PLATELET ESTIMATE, MANUAL NORMAL (130-450,000) (NORMAL); PLATELET MORPHOLOGY NORMAL APPEARANCE (NORMAL); RBC MORPHOLOGY (MULTIPLE) 1+ HYPOCHROMASIA (NORMAL)
[2025-09-23 06:32] LABS: WBC MORPHOLOGY (MULTIPLE) 1+ TOXIC GRANULATION (NORMAL)
--- NOTE | 2025-09-23 07:24 | PROVIDER PROGRESS NOTE ---
Subjective Prog Note Date Prog Note Date: 09/23/25 Prog Note Time: 07:22 Subjective Subjective: Clinically stable. Has remained afebrile. Blood pressures remain normal. Her pulse remains 70s during the day but 50s at night. Unclear why she only has vitals charted once during the day yesterday. She continues to demonstrate leukocytosis. Further demonstrating left shift today. Myelocytes present on manual differential. Blood cultures from yesterday have not reported back yet. Echo from yesterday is still pending. Continues to not demonstrate any localizing symptoms. Denies dysuria. Denies fever or chills. Malaise is improved from days prior. She is continuing to feel more energy. She is getting stronger. Current Medications Current Medications Current Medications: Current Medications Generic Name Dose Route Start Last Admin Trade Name Freq PRN Reason Stop Dose Admin Acetaminophen 650 mg 09/17/25 10:52 09/17/25 21:23 Acetaminophen 325 Mg Tablet PO 650 mg Q4HR PRN Administration Pain 1 to 4, or Fever Apixaban 5 mg 09/19/25 21:00 09/22/25 20:18 Apixaban 5 Mg Tablet PO 5 mg BID FABIO Administration Insulin Glargine-yfgn 15 unit 09/22/25 21:00 09/22/25 20:19 Insulin Glargine-Yfgn 300 Unit/3 Ml Pen SUBQ 15 unit QPM FABIO Administration Insulin Human Lispro 1 - 9 unit 09/18/25 08:00 09/22/25 22:08 Insulin Lispro 300 Unit/3 Ml Pen SUBQ Not Given 0800,1200,1700,2100 [facility] Protocol Insulin Human Lispro 5 unit 09/22/25 17:00 09/22/25 16:57 Insulin Lispro 300 Unit/3 Ml Pen SUBQ 5 unit TIDWM FABIO Administration Metoprolol Succinate 50 mg 09/19/25 09:00 09/22/25 08:26 Metoprolol Succinate 50 Mg Tablet PO 50 mg DAILY FABIO Administration Ondansetron HCl 4 mg 09/17/25 10:52 Ondansetron Odt 4 Mg Tablet TL Q6HR PRN Nausea / Vomiting Ondansetron HCl 4 mg 09/17/25 10:52 09/18/25 13:12 Ondansetron 4 Mg/2 Ml Vial IVP 4 mg Q6HR PRN Administration Nausea / Vomiting Pantoprazole Sodium 40 mg 09/19/25 07:00 09/23/25 06:23 Pantoprazole 40 Mg Tablet PO 40 mg QDAC FABIO Administration Sodium Chloride 10 ml 09/17/25 17:00 09/22/25 23:55 Sodium Chloride Flush 0.9% 10 Ml Syringe IVP 10 ml 0100,0900,1700 FABIO Administration Sodium Chloride 10 ml 09/17/25 10:52 09/21/25 09:21 Sodium Chloride Flush 0.9% 10 Ml Syringe IVP 10 ml PRN PRN Administration NEEDED PER PROVIDER ORDERS Trimethoprim/Sulfamethoxazole 1 tab 09/21/25 21:00 09/22/25 20:18 Sulfameth/Trimeth Ds 800/160 Mg Tablet PO 09/24/25 20:59 1 tab BID FABIO Administration Objective Vital Signs/Intake & Output Reviewed Vital Signs: Yes Vital Signs: Vital Signs x48h Temp Pulse Resp BP Pulse Ox 09/22/25 23:44 36.7 C 52 L 18 159/61 H 95 Intake & Output: Intake & Output 09/20/25 09/21/25 09/22/25 09/23/25 23:59 23:59 23:59 23:59 Intake Total 500 / 500 740 / 740 1280 / 1280 Output Total 1974 / 1974 750 / 750 1950 / 1950 500 / 500 Balance -1475 / -1475 -10 / -10 -670 / -670 -500 / -500 Weight (kg) 90.5 kg 89.5 kg 89.5 kg 89.5 kg Objective Comments/Other: GEN: No acute distress. Appears older than stated age. HEENT: NC/AT, normal appearance of external ears and nose. Hearing baseline. Cardiac: Irregular irregular rhythm. Rate controlled. New left parasternal 3/6 systolic murmur. She has an S3 gallop associated. Pulm: No adventitial lung sounds. Normal effort on room air. Abdomen: Soft, nontender, nondistended. No rebound or guarding Extremities: Moves all 4 extremities equally. Normal tone. Neuro: Face symmetric, CN II through XII intact grossly. Gait exam deferred Psych: Mood euthymic with congruent affect. Lab Results 09/23/25 05:19 09/23/25 05:19 Other Labs: Lab Results x24hrs 09/23/25 09/22/25 09/22/25 Range/Units 05:19 20:44 16:29 WBC 16.7 H (4.8-10.8) x10^3/uL RBC 3.92 L (4.20-5.40) 10^6/uL Hgb 11.0 L (12.0-16.0) g/dL Hct 35.0 L (37.0-47.0) % MCV 89.3 (81.0-99.0) fL MCH 28.1 (27.0-31.0) pg MCHC 31.4 L (32.0-36.0) g/dL RDW 14.5 (12.0-15.0) % Plt Count 300 (130-450) 10^3/uL MPV 11.0 H (7.9-10.8) fL Neut # (Auto) Not Reportable Lymph # (Auto) Not Reportable [place] # (Auto) Not Reportable Eos # (Auto) Not Reportable Baso # (Auto) Not Reportable Absolute Nucleated RBC Not Reportable Total Counted 100 Band Neuts % (Manual) 2 (0 - 10) % Abnorm Lymph % (Manual) 0 % Metamyelocytes % 1 H ( - 0) % Myelocytes % 2 H ( - 0) % Nucleated RBC % Not Reportable Neutrophils # (Manual) 10.5 H (1.5-6.6) 10^3/uL Lymphocytes # (Manual) 4.8 H (1.5-3.5) 10^3/uL Monocytes # (Manual) 0.8 (0.0-1.0) 10^3/uL Eosinophils # (Manual) 0.0 (0-0.7) 10^3/uL Basophils # (Manual) 0.0 (0-0.1) 10^3/uL Differential Comment MANUAL DIFFERENTIAL WBC Morphology 1+ TOXIC GRANULATION (NORMAL) Platelet Estimate NORMAL (130-450,000) (NORMAL) Platelet Morphology NORMAL APPEARANCE (NORMAL) RBC Morph Micro Appear 1+ HYPOCHROMASIA (NORMAL) Sodium 132 L (135-145) mmol/L Potassium 3.8 (3.5-4.5) mmol/L Chloride 101 (101-111) mmol/L Carbon Dioxide 25 (21-32) mmol/L Anion Gap 6.0 (6-13) BUN 28 H (6-20) mg/dL Creatinine 1.3 (0.6-1.3) mg/dL Estimated GFR (MDRD) 40 L (>89) Glucose 95 (74-104) mg/dL POC Whole Bld Glucose 123 112 (70-100) mg/dL Calcium 8.2 L (8.5-10.3) mg/dL 09/22/25 09/22/25 Range/Units 11:07 07:22 WBC (4.8-10.8) x10^3/uL RBC (4.20-5.40) 10^6/uL Hgb (12.0-16.0) g/dL Hct (37.0-47.0) % MCV (81.0-99.0) fL MCH (27.0-31.0) pg MCHC (32.0-36.0) g/dL RDW (12.0-15.0) % Plt Count (130-450) 10^3/uL MPV (7.9-10.8) fL Neut # (Auto) Lymph # (Auto) [place] # (Auto) Eos # (Auto) Baso # (Auto) Absolute Nucleated RBC Total Counted Band Neuts % (Manual) (0 - 10) % Abnorm Lymph % (Manual) % Metamyelocytes % ( - 0) % Myelocytes % ( - 0) % Nucleated RBC % Neutrophils # (Manual) (1.5-6.6) 10^3/uL Lymphocytes # (Manual) (1.5-3.5) 10^3/uL Monocytes # (Manual) (0.0-1.0) 10^3/uL Eosinophils # (Manual) (0-0.7) 10^3/uL Basophils # (Manual) (0-0.1) 10^3/uL Differential Comment WBC Morphology (NORMAL) Platelet Estimate (NORMAL) Platelet Morphology (NORMAL) RBC Morph Micro Appear (NORMAL) Sodium (135-145) mmol/L Potassium (3.5-4.5) mmol/L Chloride (101-111) mmol/L Carbon Dioxide (21-32) mmol/L Anion Gap (6-13) BUN (6-20) mg/dL Creatinine (0.6-1.3) mg/dL Estimated GFR (MDRD) (>89) Glucose (74-104) mg/dL POC Whole Bld Glucose 104 91 (70-100) mg/dL Calcium (8.5-10.3) mg/dL Assessment/Plan Problem List (1) E coli bacteremia: Impression: Continues on oral antibiotics. Remains clinically stable. Her white blood cell count remains elevated. Blood cultures remain NGTD, TTE from 09/23 does not show any vegetation Recall she was initially septic on arrival. Her vital signs have since stabilized. She is nontachycardic. Nontachypneic. Leukocytosis improved from 22 down to 15 on hospital day 1, but has remained stable around that number since. Initial blood cultures positive for E. coli which is pansensitive. Started initially on ceftriaxone. Given clinical stability, was de-escalated from IV ceftriaxone to oral Bactrim on 09/21. Leukocytosis persistently elevated, came down to 15 but has not moved from there much. She has had CT scans which are negative for any occult infection, stone, hydronephrosis, or abscess. No other localizing symptoms. TTE from admission and repeat on 09/23 did not show any clear vegetation - Given persistent elevation of leukocytosis, will treat for 14 days total for GN bacteremia. EOT 10/01. Continue Bactrim twice daily - Follow-up clearance cultures drawn 930 on 09/22, if NGTD tomorrow morning med ready for discharge - If clearance cultures positive, likely will have to transfer for CARRI - CBC with differential in a.m. - Tentatively planning that patient will be stable for discharge on oral antibiotics on the morning of 09/24, case management assisting with transport to rehab (2) Uncontrolled diabetes mellitus: Impression: Blood glucose is continuing to improve, suspect there is stabilizing with resolution of her infection. She is eating well. She has not become hypoglycemic, but blood sugars have been hovering around 100. A1c this admission 14.4% Recall she has not been on any glycemic control agents for several months to years prior to her admission. She does not have a primary care doctor. - Further reduce glargine to 12 units nightly - Discontinue scheduled lispro - Continue sliding scale insulin with diabetic diet - Will need outpatient PCP follow-up, appreciate case management Qualifiers: Diabetes mellitus type: type 2 Glycemic state: with hyperglycemia Q ualified Code(s): E11.65 - Type 2 diabetes mellitus with hyperglycemia (3) Atrial fibrillation with RVR: Impression: She is no longer in RVR. Her rate is controlled, stepping back on her metoprolol given tight control of her heart rate. Despite having rates at times in the 40s, she has remained asymptomatic. Cogent, talking, ambulating minimally Recall that she presented with new diagnosis of paroxysmal atrial fibrillation. Was in RVR on initial arrival. Has since stabilized on beta-blockers. Was having some ectopy on telemetry, but overall rate controlled. Telemetry was discontinued on 09/21 after multiple days of no medication adjustments. [id number] = 2; Has been started on DOAC as well as metoprolol succinate No hemodynamically significant bleeding since starting on DOAC. Is having some urethral versus hemorrhoidal bleeding but counts remain stable. - Reduce Toprol to 25 mg daily - Continue DOAC - Will need meds sent to pharmacy for rehab (4) DKA (diabetic ketoacidosis): Qualifiers: Diabetes mellitus complication detail: without coma Diabetes mellitus type: type 2 Qualified Code(s): E11.10 - Type 2 diabetes mellitus with ketoacidosis without coma (5) High anion gap metabolic acidosis: Impression: Resolved Managing diabetes as above. Initially presented in DKA. This is in the setting of prolonged uncontrolled diabetes. She has been neglecting her own care for some time. Previously was managed with just oral glycemic control agents. (6) Acute kidney failure: Impression: Resolved Patient's creatinine is back to normal. Initial presentation. Creatinine 2.4 in the setting of her DKA and attendant profound volume loss. Suspect overall was ATN in the setting of sepsis and dehydration. - Continue to encourage oral hydration Qualifiers: Acute renal failure type: unspecified Qualified Code(s): N17.9 - Acute kidney failure, unspecified (7) Muscular deconditioning: Impression: Profound deconditioning from her acute illness as well as likely chronic from uncontrolled diabetes. PT is recommended SNF. Her daughter is encouraging of this and has helped [facility]. - Medically ready for SNF 09/24, Transport arranged for a.m. Will need medication sent. - POLST was completed 09/23, scanned into record. Full code, full treatment I spent a total of 52 minutes in the care of this patient today. This time was spent reviewing labs, vital signs, imaging, interviewing and examining the patient, and discussing plan of care with them and their other care providers. This time was spent in addition with advance care planning. Patient is full code as above. POLST was scanned to the chart. She has POA paperwork filled out here that names her daughter Keila as her POA
--- NOTE | 2025-09-23 12:01 | ECHO Report ---
Version: 1 Study ID: [id number] [id number] Adult Echocardiogram Report Name: ANDRÉS VARGHESE Study Date: 09/23/2025, 10: 55 AM BP: 136 / 63 mmHg [place] [facility] [id number] HR: 85 bpm : 1955 (MM/DD/YYYY) Gender: Female Height: 62 in Age: 69 Years Weight: 197.314 lb BSA: 1.90 m² Reason For Study: Left sternal border murmur, C/F MV endocarditis History: Left sternal border murmur, C/F MV endocarditis Full TTE 09/18/2025 Interpretation Summary Global left ventricular systolic function is normal. The visual left ventricular ejection fraction is estimated at 55 to 60%. The aortic valve is mildly thickened, and calcified. The mitral valve leaflets are mildly thickened. Although vegetation is not seen, these cannot be excluded, consider CARRI if clinically indicated. Left Ventricle: Global left ventricular systolic function is normal. The visual left ventricular ejection fraction is estimated at 55 to 60%. Aortic Valve: The aortic valve is trileaflet. The aortic valve is mildly thickened. The aortic valve is mildly calcified. Cannot exclude aortic valve vegetation. No hemodynamically significant valvular aortic stenosis. No aortic regurgitation is present. Mitral Valve: The mitral valve leaflets are mildly thickened. Mild mitral annular calcification is present. The mitral annular calcification is both posterior and anterior. Cannot exclude mitral valve vegetation. No evidence of mitral stenosis is seen. There is trace mitral regurgitation. Tricuspid Valve: The tricuspid valve is normal in structure and function. There is no tricuspid valve vegetation. Trace tricuspid regurgitation present. Pulmonic Valve: The pulmonic valve is normal in structure and function. There is no pulmonic valve vegetation. There is no pulmonic valvular stenosis. Trace pulmonic valvular regurgitation is present. Pericardium/Pleural Space: There is no pericardial effusion. MMode/2D Measurements & Calculations BMI: 36.1 kilograms/m² BSA(Haycock): 2.02 m² Procedure Notes: A focused 2D and Doppler study was performed. Indication: Evaluate for endocarditis. This study was focused secondary to referring physician. The study was done with the patient in the supine position, due to inability to lie on the left side. CPT Codes: [id number]: Color Doppler flow. [id number]: Transthoracic Echo without spectral or color Doppler, Limited. [id number]: Spectral Doppler, limited. MD Paige Martin 09/23/2025, 12: 01 PM Ordering Physician: Fede Roque Referring Physician: Roseanne Rodarte Performed By: Ronna Tong RDCS
[2025-09-23] MEDS: INSULIN GLARGINE-YFGN 300 UNIT/3 ML PEN SUBQ SCH (20:43)
[2025-09-24 06:13] LABS: HCT - HEMATOCRIT 37.1 % (37.0-47.0); HGB - HEMOGLOBIN 11.8 g/dL (12.0-16.0); MEAN PLATELET VOLUME 10.6 fL (7.9-10.8); PLT - PLATELET COUNT 358 10^3/uL (130-450); RED CELL DISTRIBUTION WIDTH 14.4 % (12.0-15.0)
[2025-09-24 06:28] LABS: ABNORMAL LYMPHS % (MANUAL) 0 %; BAND NEUTROPHILS % (MANUAL) 0 %; EOSINOPHILS # (MANUAL) 0.0 10^3/uL (0-0.7)
[2025-09-24 06:35] LABS: BUN - BLOOD UREA NITROGEN 22.0 mg/dL (6-20); CARBON DIOXIDE - CO2 25.0 mmol/L (21-32); CREATININE 1.3 mg/dL (0.6-1.3); GFR - MDRD 40.0 (>89)
[2025-09-24 06:56] LABS: BASOPHILS # (MANUAL) 0.2 10^3/uL (0-0.1); BASOPHILS % (MANUAL) 1 %; LYMPHOCYTES # (MANUAL) 2.7 10^3/uL (1.5-3.5); LYMPHOCYTES % (MANUAL) 15 %; METAMYELOCYTES % (MANUAL) 1 %; MONOCYTES # (MANUAL) 0.5 10^3/uL (0.0-1.0); MYELOCYTES % (MANUAL) 1 %; NEUTROPHILS # (MANUAL) 14.1 10^3/uL (1.5-6.6)
[2025-09-24 06:57] LABS: PLATELET ESTIMATE, MANUAL NORMAL (130-450,000) (NORMAL); PLATELET MORPHOLOGY NORMAL APPEARANCE (NORMAL); RBC MORPHOLOGY (MULTIPLE) NORMAL APPEARANCE (NORMAL)
[2025-09-24 06:59] LABS: WBC MORPHOLOGY (MULTIPLE) 1+ TOXIC GRANULATION (NORMAL)
--- NOTE | 2025-09-24 07:57 | Discharge Summary ---
"Discharge Summary Admit Date: 09/17/25 Discharge Date: 09/24/25 Discharging Provider: Fede Roque Primary Care Provider: No PCP Code Status: Attempt Resuscitation Discharge Facility Name: [facility] DIAGNOSES Discharge Diagnoses with Status of Each Condition: ## E coli bacteremia, on treatment Continues on oral antibiotics. Remains clinically stable. She has a persistently elevated white blood cell count, but surveillance cultures remain negative. She had an echocardiogram which did not show any further infection. Treating empirically with a 14-day course of antibiotics given her persistent leukocytosis. Her vital signs remained stable. She has remained afebrile, normotensive, with a regular heart rate. Her blood sugars are also stabilizing as below. Initial blood cultures positive for E. coli which is pansensitive. Started initially on ceftriaxone. Given clinical stability, was de-escalated from IV ceftriaxone to oral Bactrim on 09/21. Leukocytosis persistently elevated, Initially at 22, came down to 15 on hospital day 1 but has not changed much from there. She has had CT scans which are negative for any occult infection, stone, hydronephrosis, or abscess. No other localizing symptoms. TTE from admission and repeat on 09/23. Neither showed any evident vegetation. She had blood cultures drawn for surveillance on 09/22. No growth after 48 hours. - Bactrim twice daily, EOT 10/01 - Return precautions if she shows further infectious symptoms. She is not had any systemic symptoms for 6 days now. - Will continue to monitor cultures here, and if positive she will likely need to be readmitted to a center that has [facility] availability - Recommend repeat CBC with differential once she is off antibiotics in 2 to 3 weeks ## Uncontrolled diabetes mellitus Blood glucoses have stabilized now just on long-acting insulin once daily. She came in with DKA as below. The etiology of which was that she has not been on glycemic control agents for months prior to admission. She does not have a primary care doctor. Suspect she is normalizing with treatment of her infection. She has had a good appetite for the last several days prior to discharge. She is eating a carb controlled diet. A1c this admission 14.4% - Continue glargine 12U qhs - Continue diabetic diet - Continue qACHS BG checks - Will need outpatient PCP follow-up ## Atrial fibrillation with RVR She is no longer in RVR. Her weight is controlled on beta-blockers. She was having heart rates in the 40s on metoprolol succinate 50 mg. She remained asymptomatic from this, but we de-escalated down to 25 mg daily as she has remained stable otherwise. This is a new diagnosis for the patient. [id number] = 2; Has been started on DOAC as well as metoprolol succinate No hemodynamically significant bleeding since starting on DOAC. Is having scant urethral versus hemorrhoidal bleeding but counts remain stable. - Toprol XL 25 mg daily and twice daily 5 mg apixaban - PCP +/- cardiology follow-up as above ## DKA (diabetic ketoacidosis), resolved ## High anion gap metabolic acidosis, resolved Managing diabetes as above. Initially presented in DKA. This is in the setting of prolonged uncontrolled diabetes. She has been neglecting her own care for some time. Previously was managed with just oral glycemic control agents. ## Acute kidney failure, resolved Patient's creatinine is back to normal. Initial presentation. Creatinine 2.4 in the setting of her DKA and attendant profound volume loss. Suspect overall was ATN in the setting of sepsis and dehydration. - Continue to encourage oral hydration ## Muscular deconditioning: Profound deconditioning from her acute illness as well as likely chronic from uncontrolled diabetes. PT is recommended SNF. Her daughter is encouraging of this and has helped [facility]. - Discharging to [facility] for ongoing rehab - POLST was completed 09/23, scanned into record. Full code, full treatment - Daughter is her POA, paperwork completed this admit. HPI History of Present Illness: Anne Lainez is a 69 year old female with a history of type 2 diabetes mellitis who presented to the ER early 09/17 with nausea/vomiting for two days and malaise and generalized discomfort. She is being admitted for DKA. Patient's son, Mj, at bedside. Ms. Lainez started experiencing nausea and vomiting two days ago. She had not been eating much before then. She lives with her son and [id number]. Her son showed us a picture of her vomit from a day ago which appeared like yellowish bile and coffee ground. Her son tried to get her to eat something, but she just continued to vomit it back up. She has been diagnosed with type 2 diabetes. Her son says that she previously controlled it with activity and diet, but that it has been more and more difficult to manage. A number of stressful events have occurred recently including the deaths of close family members, which has made her less motivated. She does not take any medicines and has not seen a doctor in 12 years. ROS: Denies fevers, chills Denies SOB, CP and chest tightness Reports fatigue and weakness Reports decrease in appetite d/t nausea Reports history of cataracts and floaters bilaterally. CONSULTS | PROCEDURES Consultations: None Procedures: CT AP 09/17 BCx 09/17 and 09/22 HOSPITAL COURSE Hospital Course: Ms. Lainez is a 69-year-old female with a known history of type 2 diabetes who came in with DKA. She was found to have gram-negative bacteremia with E. coli. She has apparently had a prolonged infection with E. coli UTI. She was stabilized with regards to her DKA on an insulin drip. She was transitioned to basal bolus insulin on hospital day 2. She had initially required significant amounts of insulin, times up to 30 units of long-acting insulin with scheduled mealtime insulin. I presume with treatment of her infection, her insulin requirement has decreased dramatically. She is now on 12 units glargine once daily without needing mealtime insulin. Her blood glucose have stabilized on this. Consideration was made to transition her to oral glycemic control agents, however with her A1c of 14 on arrival and DKA this was thought to be a safer option. She was treated for her gram-negative bacteremia. Found to have E. coli which was pansensitive. Treated initially with ceftriaxone. Given vital sign stability she was de-escalated to oral agents on hospital day 5. She has had no ongoing vital sign findings suggestive of ongoing infection. Particularly she has remained afebrile, normotensive. She has no other localizing signs of infection. Denies any pains or dysuria. She is mentating appropriately without meningismus signs. That being said, she had a persistently elevated leukocytosis that is somewhat inexplicable. It is neutrophilic predominance. Surveillance blood cultures were drawn because of this on 09/22 and they have not grown anything to date. Given her clinical stability, she is appropriate for discharge to care home which is recommended by physical therapy. She is quite deconditioned from her prolonged illness course. She had an additional new diagnosis this admission of atrial fibrillation. She has no prior history of atrial fibrillation. She has been in persistent atrial fibrillation during this hospitalization, initially presenting in RVR in the setting of her sepsis. She has been rate controlled on metoprolol 50 mg which was reduced to 25 mg given adequate control. She has been started on a DOAC. She has been in atrial fibrillation rhythm throughout this hospitalization. She unfortunately does not have a primary care provider and needs to establish with one to continue ongoing diabetes treatments. Case management is working on this during this hospitalization, limited by her discharge to care home and unclear discharge from care home. Finally with regards to her goals of care, there were multiple conversations during this hospitalization about her wishes. Her presentation is largely a result of neglect of her chronic health problems. She had some point stopped taking her diabetic medications many months ago. This likely precipitated her infection and DKA. She has been clear that she does not want to be on machines for a long time. She is reticent however to endorse that DNR status. Her family is well aware of her reticence to be on life support for an extended period of time. She was very clear that she wanted her surrogate decision maker to be her daughter, and POA paperwork was completed during this hospitalization. POLST was completed prior to transport. She is DNR, full treatment. Patient was seen and evaluated on the day of discharge. She is clinically stable for discharge. She is tolerating oral antibiotics. Her vital signs remained stable. I was able to call and update her family members as well. Their questions were answered. ALLERGIES Allergies Allergy/AdvReac Type Severity Reaction Status Date / Time Penicillins Allergy Mild Rash Verified 09/17/25 07:25 iodine AdvReac Unknown Verified 09/23/25 15:19 MEDICATIONS Ambulatory Orders Medication Instructions Recorded Confirmed apixaban 5 mg tablet 5 mg PO BID #60 tabs 5 insulin glargine-yfgn 100 unit/mL 12 unit (0.12 mL) roman bcut QPM #15 mL 09/24/25 (3 mL) subcutaneous pen metoprolol succinate 25 mg 25 mg PO DAILY #30 tabs tablet,extended release 24 hr pantoprazole 40 mg tablet,delayed 40 mg PO QDAC #30 ta bs 09/24/25 release sulfamethoxazole 800 1 tab PO BID #15 tabs mg-trimethoprim 160 mg tablet PHYSICAL EXAM AT DISCHARGE Vital Signs: Vital Signs x48h Temp Pulse Resp BP Pulse Ox 09/24/25 00:05 36.8 C 102 H 18 151/81 H 93 Physical Exam Other/Comments: GEN: No acute distress. Appears older than stated age. HEENT: NC/AT, normal appearance of external ears and nose. Hearing baseline. Cardiac: Irregular irregular rhythm. Rate controlled. Left parasternal systolic murmur still present, not 2/6. S3 gallop resolved. Pulm: No adventitial lung sounds. Normal effort on room air. Abdomen: Soft, nontender, nondistended. No suprapubic tenderness. No rebound or guarding Extremities: Moves all 4 extremities equally. Normal tone. No rashes or wounds. Neuro: Face symmetric, CN II through XII intact grossly. Gait exam deferred Psych: Mood euthymic with congruent affect. LABS 09/24/25 05:56 09/24/25 05:56 SEPSIS Current Stage of Sepsis: Severe sepsis Possible source of Sepsis: Genitourinary Confirmed Source and Organism (if known) of Sepsis: E. Coli Sepsis Associated Organ Dysfunction: DKA Sepsis Criteria: Recorded Heart Rate greater than 90 bpm, Recorded Respiratory Rate greater than 20 and WBC count greater than 12,000 or less than 4000 FOLLOW UP Follow Up: Needs to establish PCP after discharge from care home for ongoing diabetic care and atrial fibrillation management. TIME SPENT Time Spent in Discharge (Minutes): 43 Discharge Plan Discharge Patient Disposition: 03 SNF DC/Xfer Condition: Stable Medically Cleared Date:: 09/24/25 Prescriptions: New apixaban 5 mg tablet 5 mg PO BID Qty: 60 2RF insulin glargine-yfgn 100 unit/mL (3 mL) Insulin Pen 12 unit subcut QPM Qty: 15 0RF metoprolol succinate 25 mg Tablet Extended Release 24 Hr 25 mg PO DAILY Qty: 30 0RF Rx Instructions: Hold for HR<60 pantoprazole 40 mg Tablet,Delayed Release (Dr/Ec) 40 mg PO QDAC Qty: 30 0RF sulfamethoxazole-trimethoprim 800-160 mg Tablet 1 tab PO BID Qty: 15 0RF Activity Restrictions: Activity as Tolerated Diet: Diabetic Health Concerns: You are being discharged after treatment for diabetic ketoacidosis (DKA) caused by an E. coli bloodstream infection. DKA is a serious complication of diabetes that happens when your body does not have enough insulin, leading to high blood sugar and acid buildup in your blood. E. coli bacteremia (a blood infection) was the trigger for your DKA episode. You have been started on insulin. You should continue on insulin until you can follow-up with your primary care doctor, they may be able to transition you back to oral diabetes medicines. Additionally you are continuing on antibiotics for a total of 14 days. These are oral antibiotics. This should help ensure definitive treatment of your E. coli bacterial infection in your blood.. You are being discharged to a care home facility is you are below your baseline level of functionality, and needing further rehab in order to to safely thrive at home. In order to continue to get better: * Continue your prescribed insulin regimen. Do not skip doses, even if you are feeling well or not eating. Missing insulin is a major risk for DKA recurrence. * Monitor your blood sugar. Check your blood glucose as directed. Seek additional care if you are having returning symptoms of nausea, vomiting, abdominal pain or if you notice persistently high blood sugars. * Recognize warning signs of DKA: These include excessive thirst, frequent urination, nausea, vomiting, abdominal pain, rapid breathing, confusion, or fruity-smelling breath. Seek medical attention immediately if these occur * Complete your antibiotics as prescribed. Finishing your antibiotics is essential to fully treat the E. coli infection and prevent further complications. * Stay hydrated. Drink non-sugary fluids regularly * Follow up with your healthcare team. Attend all scheduled appointments for diabetes management and infection follow-up. Bring your blood sugar logs to these visits. * Sick day management: If you become ill, continue insulin, monitor blood sugar and ketones more frequently, and contact your healthcare team for advice. Do not stop insulin even if you are not eating. * Prevent future DKA episodes: Take medications as prescribed, monitor for infections, and contact your healthcare team if you have any concerns or symptoms. When to seek immediate medical care: * Unable to keep fluids down * Persistent vomiting or diarrhea * Blood sugar remains high despite insulin * Moderate or large ketones in urine or blood * Signs of infection (fever, chills, worsening pain) * Confusion or difficulty breathing It has been a pleasure taking care of you. I hope you continue to feel better. Print Language: Czech Patient Instructions: Sulfamethoxazole Trimethoprim SMX-TMP tablets, Diabetic Ketoacidosis, Insulin for Type 2 Diabetes Stand Alone Forms: SNF Discharge, PCP List Vitals documented within 30 minutes of discharge?: Yes"
[2025-09-24] MEDS: METOPROLOL SUCCINATE 25 MG TABLET PO SCH (08:30)
[2025-09-24 11:17] VITALS: BP 159/60; TEMP 97.9; O2SAT 98
== END 2025-09-24 10:30 | DRG 871 ==
LOC: ED 04:46 → ICU 04:46 → SUATTDRO 15:53 → MS2 09-18 12:52
PROVIDERS: ADMIT Internal Medicine; ATTEND Student in an Organized Health Care Education/Training Program
DX: R65.20 Severe sepsis without septic shock; K64.9 Unspecified hemorrhoids; R31.0 Gross hematuria; Z88.8 Allergy status to other drugs, medicaments and biological substances; E11.10 Type 2 diabetes mellitus with ketoacidosis without coma; E11.36 Type 2 diabetes mellitus with diabetic cataract; Z88.0 Allergy status to penicillin; Z63.4 Disappearance and death of family member; M62.89 Other specified disorders of muscle; H40.9 Unspecified glaucoma; H43.392 Other vitreous opacities, left eye; Z66 Do not resuscitate; N17.0 Acute kidney failure with tubular necrosis; E86.0 Dehydration; A41.51 Sepsis due to Escherichia coli [E. coli]; A41.50 Gram-negative sepsis, unspecified; Z87.891 Personal history of nicotine dependence; I48.91 Unspecified atrial fibrillation; Z79.4 Long term (current) use of insulin; Z91.148 Patient's other noncompliance with medication regimen for other reason; E86.9 Volume depletion, unspecified; N39.0 Urinary tract infection, site not specified